=== PATIENT | female | born 1995 | race Caucasian/White ===

== ENCOUNTER 2016-09-20 16:45 | Emergency (ER) | payer BC ==
[2016-09-20] MEDS ORDERED: PREDNISONE 20 MG TABLET PO ONE (19:04)
[2016-09-20] MEDS ORDERED: ALBUTEROL SULFATE 0.083% NEB 2.5 MG/3 ML AMPUL NEB ONE (19:04)
[2016-09-20] MEDS ORDERED: AZITHROMYCIN 250 MG TABLET PO ONE (19:05)
--- NOTE | 2016-09-20 19:06 | ER Document Report ---
HPI - HPI Patient complains to provider of: sinus pressure, cough, congestion Onset: Other - 3 weeks Onset/Duration: Gradual Pain Level: 2 Context: 21-year-old female complaining of head congestion and sinus pain and chest congestion with cough for 3 weeks. No fever or chills. No nausea vomiting or diarrhea. No chest pain or shortness of breath. Associated Symptoms: None Exacerbated by: Denies Relieved by: Denies Similar symptoms previously: Yes Recently seen / treated by doctor: No - ROS ROS below otherwise negative: Yes Systems Reviewed and Negative: Yes All other systems reviewed and negative - REPRODUCTIVE Reproductive: DENIES: : <DC MATTHEWS - Last Filed: 09/23/16 07:33> Past Medical History - General Information source: Patient - Social History Smoking Status: Unknown if Ever Smoked Frequency of alcohol use: None Drug Abuse: None Family History: Reviewed & Not Pertinent - Medical History Medical History: Negative Past Surgical History: Reports: Hx Oral Surgery, Hx Tonsillectomy - Immunizations Immunizations up to date: Yes Hx Diphtheria, Pertussis, Tetanus Vaccination: Yes <DC MATTHEWS - Last Filed: 09/23/16 07:33> Vertical Provider Document - CONSTITUTIONAL Agree With Documented VS: Yes Exam Limitations: No Limitations - INFECTION CONTROL TRAVEL OUTSIDE OF THE [place] IN LAST 30 DAYS: No - HEENT HEENT: Normocephalic, Pharyngeal Erythema. negative: Conjuctival Injection, Tympanic Membrane Red - NECK Neck: Supple. negative: Lymphadenopathy-Left, Lymphadenopathy-Right - RESPIRATORY Respiratory: Breath Sounds Normal, No Respiratory Distress - CARDIOVASCULAR Cardiovascular: Regular Rate, Regular Rhythm - BACK Back: Normal Inspection - MUSCULOSKELETAL/EXTREMETIES Musculoskeletal/Extremeties: ESPERANZA COBOS - NEURO Level of Consciousness: Awake, Alert - DERM Integumentary: Warm, Dry, No Rash <DC MATTHEWS - Last Filed: 09/23/16 07:33> Course - Re-evaluation Re-evalutation: 09/20/16 20:12 Chest x-ray is negative 09/23/16 07:35 <DC MATTHEWS - Last Filed: 09/23/16 07:33> - Vital Signs Vital signs: Temp Pulse Resp BP Pulse Ox 97.9 F 78 16 126/75 H 98 09/20/16 19:06 09/20/16 19:06 09/20/16 19:06 09/20/16 19:06 09/20/16 19:06 <EDU WILBURN - Last Filed: 09/23/16 17:23> Discharge <BYRONDC - Last Filed: 09/23/16 07:33> <EDU WILBURN - Last Filed: 09/23/16 17:23> - Discharge Clinical Impression: Bronchitis Condition: Good Disposition: HOME, SELF-CARE Instructions: Inhaled Bronchodilators ([facility]), Steroid Medication, Bronchitis ( [facility]) Additional Instructions: plenty of fluids to er if worse use the inhaler to help get the mucous out Prescriptions: Albuterol Sulfate [Proair HFA Inhalation Aerosol 8.5 gm MDI] 2 puff IH Q3HP PRN #1 hfa.aer.[id number] PRN Reason: Azithromycin [Zithromax] 250 mg PO DAILY #4 tablet Prednisone [Deltasone 20 mg Tablet] 40 mg PO DAILY #8 tablet
[2016-09-20 19:11] VITALS: BP 126/75
[2016-09-20] MEDS ORDERED: ALBUTEROL SULFATE HFA (90 MCG/PUFF) 200 PUFF/8.5 GM MDI IH ONE (20:12)
== END 2016-09-20 20:35 | disposition home or self-care (01) ==
LOC: ER 16:45
DX: J40 Bronchitis, not specified as acute or chronic (principal); J34.89 Other specified disorders of nose and nasal sinuses; R09.89 Other specified symptoms and signs involving the circulatory and respiratory systems; R05 Cough
CPT/HCPCS: 94640; 99283; 71020; J7512; J3490

== ENCOUNTER 2017-05-17 14:21 | Emergency (ER) | payer BC ==
[2017-05-17] MEDS ORDERED: NORMAL SALINE 1000 ML 1,000 ML IV PRN (14:35)
[2017-05-17] MEDS ORDERED: METOCLOPRAMIDE HCL INJ/PF 10 MG/2 ML SDV IV ONE (14:36)
[2017-05-17 15:35] LABS: ABSOLUTE EOSINOPHILS # (AUTO) 0.1 10^3/uL (0.0-0.6); ABSOLUTE LYMPHOCYTES (AUTO) 1.5 10^3/uL (0.5-4.7); ABSOLUTE MONOCYTES (AUTO) 0.3 10^3/uL (0.1-1.4); ABSOLUTE NEUT (AUTO) 6.3 10^3/uL (1.7-8.2); BASOPHILS % (AUTO) 0.3 % (0-2); HEMATOCRIT 41.5 % (36.0-47.0); HEMOGLOBIN 13.7 g/dL (12.0-15.5); HGB HCT DIFFERENCE -0.4; MEAN CORPUSCULAR HEMOGLOBIN 26.5 pg (27.0-33.4); MEAN CORPUSCULAR HGB CONC 33.1 g/dL (32.0-36.0); MEAN CORPUSCULAR VOLUME 80 fl (80-97); MONOCYTES % (AUTO) 3.8 % (3-13); RED BLOOD COUNT 5.17 10^6/uL (3.72-5.28); RED CELL DISTRIBUTION WIDTH 15.7 % (11.5-14.0); SEGMENTED NEUTROPHILS % (AUTO) 76.9 % (42-78); WHITE BLOOD COUNT 8.2 10^3/uL (4.0-10.5)
[2017-05-17 15:58] LABS: APPEARANCE,URINE SLIGHTLY-CLOUDY; BILIRUBIN,URINE NEGATIVE (NEGATIVE); GLUCOSE, URINE NEGATIVE (NEGATIVE); KETONES,URINE 80 mg/dL (NEGATIVE); LEUKOCYTE ESTERASE,URINE NEGATIVE (NEGATIVE); NITRITE,URINE NEGATIVE (NEGATIVE); PROTEIN,URINE NEGATIVE (NEGATIVE)
[2017-05-17 16:01] LABS: ALBUMIN 4.8 g/dL (3.5-5.0); CARBON DIOXIDE 22 mmol/L (22-30); CREATININE RESULT 0.56 mg/dL (0.52-1.25); NEONATAL BILIRUBIN RESULT 0.3 mg/dL (0.1-1.1); TOTAL PROTEIN 8.2 g/dL (6.3-8.2)
[2017-05-17 16:02] LABS: ASPARTATE AMINO TRANSFERASE 31 U/L (14-36); BLOOD UREA NITROGEN 6 mg/dL (7-20); CALCIUM 10.2 mg/dL (8.4-10.2); GLUCOSE 78 mg/dL (75-110); POTASSIUM 4.2 mmol/L (3.6-5.0)
[2017-05-17 16:04] LABS: ALANINE AMINOTRANSFERASE 57 U/L (9-52); ALKALINE PHOSPHATASE 100 U/L (38-126)
[2017-05-17 16:05] LABS: ANION GAP 16 (5-19); CHLORIDE 102 mmol/L (98-107); SODIUM 139.7 mmol/L (137-145)
[2017-05-17 16:17] LABS: BILIRUBIN,DIRECT 0.5 mg/dL (0.0-0.4); BILIRUBIN,TOTAL 0.8 mg/dL (0.2-1.3)
--- NOTE | 2017-05-17 16:38 | ER Document Report ---
ED General - General Chief Complaint: Nausea/Vomiting Stated Complaint: POSSIBLE DEHYDRATION Time Seen by Provider: 05/17/17 14:35 Information source: Patient Notes: Patient states that she has had several days of nausea and vomiting with some mild upper epigastric cramping. This pain has been intermittent. Nothing makes them better or worse. It does not radiate. Patient states she is currently 8 weeks and has had a normal ultrasound already with this . No vaginal discharge or bleeding. No diarrhea. No fevers. No rashes. She states she was referred here today by her CLERICAL COORDINATOR provider TRAVEL OUTSIDE OF THE [place] IN LAST 30 DAYS: No - Related Data Allergies/Adverse Reactions: No Known Allergies Allergy (Verified 05/17/17 14:27) Past Medical History - General Information source: Patient - Social History Smoking Status: Never Smoker Chew tobacco use (# tins/day): No Frequency of alcohol use: None Drug Abuse: None Family History: Reviewed & Not Pertinent Neurological Medical History: Reports: Hx Migraine Renal/ Medical History: Denies: Hx Peritoneal Dialysis Past Surgical History: Reports: Hx Oral Surgery - wisdom, Hx Tonsillectomy - Immunizations Immunizations up to date: Yes Hx Diphtheria, Pertussis, Tetanus Vaccination: Yes Review of Systems - Review of Systems Constitutional: Malaise. denies: Chills, Fever Cardiovascular: denies: Chest pain, Palpitations Respiratory: denies: Cough, Short of breath Gastrointestinal: Nausea, Vomiting. denies: Diarrhea -: Yes All other systems reviewed and negative Physical Exam - Vital signs Interpretation: Normal - General General appearance: Appears well, Alert - HEENT Head: Normocephalic, Atraumatic Eyes: Normal Pupils: PERRL - Respiratory Respiratory status: No respiratory distress Chest status: Nontender Breath sounds: Normal Chest palpation: Normal - Cardiovascular Rhythm: Regular Heart sounds: Normal auscultation Murmur: No - Abdominal Inspection: Normal Distension: No distension Bowel sounds: Normal Tenderness: Nontender Organomegaly: No organomegaly - Back Back: Normal, Nontender - Extremities General upper extremity: Normal inspection, Nontender, Normal color, Normal ROM , Normal temperature General lower extremity: Normal inspection, Nontender, Normal color, Normal ROM , Normal temperature, Normal weight bearing. No: Hudson's sign - Neurological Neuro grossly intact: Yes Cognition: Normal Orientation: AAOx4 [place] Coma Scale Eye Opening: Spontaneous [place] Coma Scale Verbal: Oriented [place] Coma Scale Motor: Obeys Commands [place] Coma Scale Total: 15 Speech: Normal Motor strength normal: LUE, RUE, LLE, RLE Sensory: Normal - Psychological Associated symptoms: Normal affect, Normal mood - Skin Skin Temperature: Warm Skin Moisture: Dry Skin Color: Normal Course - Re-evaluation Re-evalutation: 05/17/17 16:36 Patient states she feels better after receiving IV fluids - Laboratory Result Diagrams: 05/17/17 15:09 05/17/17 15:09 Laboratory results interpreted by me: 05/17/17 05/17/17 05/17/17 15:09 15:09 15:09 MCH 26.5 L RDW 15.7 H BUN 6 L Direct Bilirubin 0.5 H ALT 57 H Urine Ketones 80 H Urine Urobilinogen 4.0 H Urine Ascorbic Acid 40 H Discharge - Discharge Clinical Impression: Hyperemesis gravidarum Condition: Stable Disposition: HOME, SELF-CARE Instructions: Antinausea Medication ([facility]), Reglan ([facility]), Intravenous (IV) Fluids ([facility]), Hyperemesis Gravidarum ([facility]) Additional Instructions: Please follow-up with your OB provider as soon as possible. Prescriptions: Metoclopramide HCl [Reglan] 10 mg PO Q6 PRN #10 tablet PRN Reason:
[2017-05-17 17:03] VITALS: BP 106/57
== END 2017-05-17 17:03 | disposition home or self-care (01) ==
LOC: ER 14:21
DX: O21.0 Mild hyperemesis gravidarum (principal); O26.891 Other specified pregnancy related conditions, first trimester; R10.13 Epigastric pain; Z3A.08 8 weeks gestation of pregnancy
CPT/HCPCS: 99284; 96361; 96374; 36415; 83690; 85025; 80053; 81001; J2765; J7030

== ENCOUNTER 2017-07-07 21:57 | Emergency (ER) | payer BC, MEDICAID ==
[2017-07-08 00:03] LABS: ABSOLUTE EOSINOPHILS # (AUTO) 0.2 10^3/uL (0.0-0.6); ABSOLUTE LYMPHOCYTES (AUTO) 1.8 10^3/uL (0.5-4.7); ABSOLUTE MONOCYTES (AUTO) 0.5 10^3/uL (0.1-1.4); ABSOLUTE NEUT (AUTO) 7.7 10^3/uL (1.7-8.2); BASOPHILS % (AUTO) 0.4 % (0-2); EOSINOPHILS % (AUTO) 1.7 % (0-6); HEMATOCRIT 38.2 % (36.0-47.0); HEMOGLOBIN 12.9 g/dL (12.0-15.5); HGB HCT DIFFERENCE 0.5; LYMPHOCYTES % (AUTO) 17.5 % (13-45); MEAN CORPUSCULAR HEMOGLOBIN 27.2 pg (27.0-33.4); MEAN CORPUSCULAR HGB CONC 33.7 g/dL (32.0-36.0); MEAN CORPUSCULAR VOLUME 81 fl (80-97); MONOCYTES % (AUTO) 4.5 % (3-13); RED BLOOD COUNT 4.73 10^6/uL (3.72-5.28); RED CELL DISTRIBUTION WIDTH 15.2 % (11.5-14.0); SEGMENTED NEUTROPHILS % (AUTO) 75.9 % (42-78); WHITE BLOOD COUNT 10.2 10^3/uL (4.0-10.5)
[2017-07-08 00:08] LABS: APPEARANCE,URINE CLEAR; BILIRUBIN,URINE NEGATIVE (NEGATIVE); GLUCOSE, URINE NEGATIVE (NEGATIVE); KETONES,URINE NEGATIVE (NEGATIVE); LEUKOCYTE ESTERASE,URINE TRACE (NEGATIVE); NITRITE,URINE NEGATIVE (NEGATIVE); PROTEIN,URINE NEGATIVE (NEGATIVE); URINE SPECIFIC GRAVITY 1.006
[2017-07-08 00:16] LABS: ANION GAP 12 (5-19); BLOOD UREA NITROGEN 7 mg/dL (7-20); CALCIUM 9.9 mg/dL (8.4-10.2); CARBON DIOXIDE 22 mmol/L (22-30); CHLORIDE 104 mmol/L (98-107); CREATININE RESULT 0.54 mg/dL (0.52-1.25); GLUCOSE 91 mg/dL (75-110); POTASSIUM 4.1 mmol/L (3.6-5.0); SODIUM 137.6 mmol/L (137-145)
--- NOTE | 2017-07-08 00:50 | ER Document Report ---
ED General - General Chief Complaint: Chest Pain Stated Complaint: CHEST PAIN,DIZZY Time Seen by Provider: 07/08/17 00:10 Notes: The patient is a 22-year-old female, 15 weeks , , presents with several hours of epigastric abdominal pain and substernal burning. She also felt slightly lightheaded, which has resolved. She follows at [facility]. In addition, she is still having nausea and vomiting. She denies lower abdominal pain, urinary symptoms, vaginal bleeding or leakage of fluids, syncope , shortness of breath, leg swelling, fevers, hemoptysis, headache or rash. TRAVEL OUTSIDE OF THE [place] IN LAST 30 DAYS: No - Related Data Allergies/Adverse Reactions: No Known Allergies Allergy (Verified 05/17/17 14:27) Past Medical History - General Information source: Patient - Social History Smoking Status: Unknown if Ever Smoked Chew tobacco use (# tins/day): No Frequency of alcohol use: None Drug Abuse: None Family History: Reviewed & Not Pertinent Patient has suicidal ideation: No Patient has homicidal ideation: No Neurological Medical History: Reports: Hx Migraine Renal/ Medical History: Denies: Hx Peritoneal Dialysis Past Surgical History: Reports: Hx Oral Surgery - wisdom, Hx Tonsillectomy - Immunizations Immunizations up to date: Yes Hx Diphtheria, Pertussis, Tetanus Vaccination: Yes Review of Systems - Review of Systems Notes: REVIEW OF SYSTEMS: CONSTITUTIONAL: -fevers, -chills EENT: -eye pain, -difficulty swallowing, -nasal congestion CARDIOVASCULAR: +chest pain, -syncope. RESPIRATORY: -cough, -SOB GASTROINTESTINAL: -abdominal pain, +nausea, +vomiting, -diarrhea GENITOURINARY: -dysuria, -hematuria MUSCULOSKELETAL: -back pain, -neck pain SKIN: -rash or skin lesions. HEMATOLOGIC: -easy bruising or bleeding. LYMPHATIC: -swollen, enlarged glands. NEUROLOGICAL: -altered mental status or loss of consciousness, -headache, - neurologic symptoms PSYCHIATRIC: -anxiety, -depression. ALL OTHER SYSTEMS REVIEWED AND NEGATIVE. Physical Exam - Vital signs Vitals: Temp Pulse Resp BP Pulse Ox 97.9 F 82 18 115/59 L 98 07/07/17 22:13 07/07/17 22:13 07/07/17 22:13 07/07/17 22:13 07/07/17 22:13 - Notes Notes: PHYSICAL EXAMINATION: GENERAL: Well-appearing, well-nourished and in no acute distress. HEAD: Atraumatic, normocephalic. EYES: Pupils equal round and reactive to light, extraocular movements intact, sclera anicteric, conjunctiva are normal. ENT: nares patent, oropharynx clear without exudates. Moist mucous membranes. NECK: Normal range of motion, supple without lymphadenopathy LUNGS: Breath sounds clear to auscultation bilaterally and equal. No wheezes rales or rhonchi. HEART: Regular rate and rhythm without murmurs ABDOMEN: Soft, nontender, normoactive bowel sounds. No guarding, no rebound. No masses appreciated. EXTREMITIES: Normal range of motion, no pitting or edema. No cyanosis. NEUROLOGICAL: Cranial nerves grossly intact. Normal speech, normal gait. Normal sensory and motor exams. PSYCH: Normal mood, normal affect. SKIN: Warm, Dry, normal turgor, no rashes or lesions noted. Course - Re-evaluation Re-evalutation: Patient appears well. Her EKG and blood work do not show any acute abnormalities. With the burning sensation, suspect a component of GERD. Will begin patient on Pepcid and Dicelgis to help with her nausea and vomiting. She has absolutely no abdominal tenderness. Considered PE, but patient has no respiratory symptoms and she is not tachycardic, tachypneic or hypoxic. Symptoms are atypical for ACS or aortic dissection at this time. Will have patient follow-up with her OB for further evaluation and treatment. - Vital Signs Vital signs: Temp Pulse Resp BP Pulse Ox 98.5 F 63 18 107/63 100 07/08/17 00:58 07/08/17 00:58 07/08/17 00:58 07/08/17 00:58 07/08/17 00:58 - Laboratory Result Diagrams: 07/07/17 23:55 07/07/17 23:55 Laboratory results interpreted by me: 07/07/17 07/07/17 23:55 23:55 RDW 15.2 H Urine Urobilinogen 2.0 H Ur Leukocyte Esterase TRACE H Urine HCG, Qual POSITIVE H - EKG Interpretation by Me EKG shows normal: Sinus rhythm, [place], Intervals, QRS Complexes, ST-T Waves Rate: Normal Discharge - Discharge Clinical Impression: Chest pain Qualifiers: Chest pain type: unspecified Qualified Code(s): R07.9 - Chest pain, unspecified Nausea and vomiting Qualifiers: Vomiting type: unspecified Vomiting Intractability: non-intractable Qualified Code(s): R11.2 - Nausea with vomiting, unspecified Condition: Stable Disposition: HOME, SELF-CARE Additional Instructions: CHEST PAIN OF UNCLEAR CAUSE: The exact cause of your chest pain isn't clear. Fortunately, there is no evidence of a dangerous medical condition. Further testing may be required to find the source of the pain. Most often, we find that this pain is coming from the chest wall -- the muscles or rib joints in the chest. But chest pain can come from the lung and lung lining, the esophagus, the heart valves or heart lining, and even the stomach or gallbladder. Rest. Eat lightly until the pain is gone. We may prescribe medicine for pain and inflammation. You should call the physician immediately if the pain radiates to the shoulder, jaw or arms; if you start to run a fever or develop a cough; or if you develop shortness of breath, or other new or alarming symptoms. NORMAL EXAM AND WORKUP: At this time, your examination and workup show no significant abnormality. No significant abnormal physical findings were noted. All laboratory, EKG, and imaging (x-ray, CT scans, ultrasound) studies that were ordered show no significant abnormality. Although your examination and all studies that were ordered showed no significant abnormal finding, there are no examinations and no studies that are 100% accurate. There is always the possibility that some abnormality could exist and not be detected with physical examination or within the limits and capabilities of laboratory and other studies. You should return or follow up as you were instructed on your visit today for further evaluation if your symptoms do not resolve. CHEST WALL PAIN: Your chest pain may be coming from the chest wall. This is often caused by straining the muscles or joints in the chest during physical activity, direct trauma, coughing, or vigorous vomiting. Persons with arthritis are especially prone to this type of pain, due to inflammation of the cartilage joints near the breast bone. Occasionally, no cause can be found. Rest from strenuous physical activity. This kind of chest pain is usually made worse by movement of the chest. Depending on the symptoms, we may prescribe medicine for pain, muscle relaxation, and antiinflammatory effects. If the pain is new, and seems to be due to muscle strain, cold packs can help. Otherwise, apply gentle warmth to the painful area for 15 minutes every hour or two. You should call contact the doctor immediately if things change. Further evaluation is needed if you develop a fever or cough, if the nature of the pain changes, or if you become short of breath. ACID REFLUX DISEASE (GERD): Gastro-Esophageal Reflux Disease (GERD) is caused by stomach acid refluxing back up into the esophagus. The valve at the end of the esophagus may be weak. This is common in persons with a hiatal hernia. GERD symptoms can include indigestion, chest pain, heartburn, or food "sticking." Certain foods, alcohol, and aspirin can make GERD worse. Treatment depends on the severity. Usually, antacids or acid-suppressing medicines are used. When the esophagus is acutely inflamed, the physician will often prescribe membrane-protective drugs such as Carafate. Some patients benefit from medication such as Reglan that tightens the valve at the top of the stomach. Avoid those foods that bring on your symptoms. For many people, these foods are coffee, chocolate, onions, garlic, and carbonated drinks. Don't use alcohol, aspirin, caffeine, or tobacco. Don't eat late at night -- within 4 hours of bedtime. Don't over-eat. If necessary, elevate the head of your bed about 4 inches so that stomach acid will not roll up into your esophagus. Call the doctor if you develop severe chest pain, inability to swallow fluids, fever, or worsening symptoms. FOLLOW-UP CARE: If you have been referred to a physician for follow-up care, call the physician s office for an appointment as you were instructed or within the next two days. If you experience worsening or a significant change in your symptoms, notify the physician immediately or return to the Emergency Department at any time for re-evaluation. Prescriptions: Doxylamine Succinate/Vit B6 [Tasneem Montelongo 10-10 mg Tablet] 1 each PO Q8H PRN #15 tablet.dr CLANCY Reason: Famotidine [Heartburn Prevention] 20 mg PO Q12H 10 Days tablet Referrals: ADEN PATINO MD [ACTIVE STAFF] - Follow up as needed
[2017-07-08 01:00] VITALS: BP 107/63
--- NOTE | 2017-07-08 20:18 | EKG REPORT ---
SEVERITY:- NORMAL ECG - SINUS RHYTHM : Confirmed by: Magdalene Pacheco MD 08-Jul-2017 20:17:11
== END 2017-07-08 00:59 | disposition home or self-care (01) ==
LOC: ER 21:57
DX: R07.9 Chest pain, unspecified (principal); R11.2 Nausea with vomiting, unspecified; R42 Dizziness and giddiness; R10.13 Epigastric pain
CPT/HCPCS: 36415; 80048; 81001; 81025; 84703; 85025; 93005; 93010; 99285

== ENCOUNTER 2017-08-01 17:06 | Emergency (ER) | payer BC, MEDICAID ==
[2017-08-01] MEDS ORDERED: NORMAL SALINE 1000 ML 2,000 ML IV PRN (18:25)
[2017-08-01] MEDS ORDERED: METOCLOPRAMIDE HCL INJ/PF 10 MG/2 ML SDV IV ONE (18:25)
--- NOTE | 2017-08-01 18:29 | ER Document Report ---
ED Dizziness/Weakness - General Chief Complaint: Dizziness Stated Complaint: WEAKNESS Time Seen by Provider: 08/01/17 18:16 Mode of Arrival: Stretcher Information source: Patient, Parent TRAVEL OUTSIDE OF THE [place] IN LAST 30 DAYS: No - HPI Patient complains to provider of: Dizziness, Syncope Onset: Just prior to arrival Onset/Duration: Sudden Quality of pain: No pain Associated symptoms: Fainted, Lightheaded, Nausea Baseline gait: Walks w/o assistance Notes: Patient is a 22-year-old female who is currently approximately 18 weeks , , presenting to the emergency room via EMS after apparent syncopal episode, mother who works at [employer] reports that patient came to pick her up, shortly thereafter she found her sitting on the bench, she was "what is a ghost ", and cool and clammy, as well as unresponsive, this is the second time that this is happened during this , patient admits that she has not been eating or drinking very much because of nausea, she is not taking her nausea medications regularly to control her nausea and vomiting, and she has lost at least 6 pounds, mother who witnessed the episode reports there was no seizure activity, and patient denies any memory of the episode, however she does remember telling her mother that she could not see and feeling lightheaded shortly before the episode occurred, she denies any chest pain or shortness of breath - Related Data Allergies/Adverse Reactions: No Known Allergies Allergy (Verified 05/17/17 14:27) Past Medical History - General Information source: Patient - Social History Smoking Status: Never Smoker Family History: Reviewed & Not Pertinent Patient has suicidal ideation: No Patient has homicidal ideation: No Neurological Medical History: Reports: Hx Migraine Renal/ Medical History: Denies: Hx Peritoneal Dialysis Past Surgical History: Reports: Hx Oral Surgery - wisdom, Hx Tonsillectomy - Immunizations Immunizations up to date: Yes Hx Diphtheria, Pertussis, Tetanus Vaccination: Yes Review of Systems - Review of Systems Constitutional: No symptoms reported EENT: No symptoms reported Cardiovascular: See HPI Respiratory: No symptoms reported Gastrointestinal: No symptoms reported Genitourinary: No symptoms reported Female Genitourinary: No symptoms reported Musculoskeletal: No symptoms reported Skin: No symptoms reported Hematologic/Lymphatic: No symptoms reported Neurological/Psychological: No symptoms reported -: Yes All other systems reviewed and negative Physical Exam - Vital signs Vitals: Resp Pulse Ox 23 H 99 08/01/17 17:31 08/01/17 17:31 Interpretation: Normal - General General appearance: Appears well, Alert - HEENT Head: Normocephalic, Atraumatic Eyes: Normal Pupils: PERRL - Respiratory Respiratory status: No respiratory distress Chest status: Nontender Breath sounds: Normal Chest palpation: Normal - Cardiovascular Rhythm: Regular Heart sounds: Normal auscultation Murmur: No - Abdominal Inspection: Gravid female Distension: No distension Bowel sounds: Normal Tenderness: Nontender Organomegaly: No organomegaly - Back Back: Normal, Nontender - Extremities General upper extremity: Normal inspection, Nontender, Normal color, Normal ROM , Normal temperature General lower extremity: Normal inspection, Nontender, Normal color, Normal ROM , Normal temperature, Normal weight bearing. No: Hudson's sign - Neurological Neuro grossly intact: Yes Cognition: Normal Orientation: AAOx4 [place] Coma Scale Eye Opening: Spontaneous [place] Coma Scale Verbal: Oriented [place] Coma Scale Motor: Obeys Commands [place] Coma Scale Total: 15 Speech: Normal Motor strength normal: LUE, RUE, LLE, RLE Sensory: Normal - Psychological Associated symptoms: Normal affect, Normal mood - Skin Skin Temperature: Warm Skin Moisture: Dry Skin Color: Normal Course - Re-evaluation Re-evalutation: 08/01/17 22:07 Patient resting comfortably, family has brought food for patient to eat which she is tolerated well, she was discharged with instructions to increase her fluid and nutrition and warned about the possible consequences to herself and her unborn child, she was advised to follow-up with [facility] or return if symptoms worsen, patient acknowledges understanding and agreement with this plan - Vital Signs Vital signs: Temp Pulse Resp BP Pulse Ox 22 H 115/80 100 08/01/17 21:01 08/01/17 21:00 08/01/17 21:01 - Laboratory Result Diagrams: 08/01/17 17:30 08/01/17 17:30 Laboratory results interpreted by me: 08/01/17 08/01/17 08/01/17 17:30 17:30 18:45 RDW 15.5 H Carbon Dioxide 20 L Urine Protein 30 H Urine Ketones 20 H Urine Urobilinogen 2.0 H Ur Leukocyte Esterase SMALL H - EKG Interpretation by Me EKG shows normal: Sinus rhythm Rate: Normal Rhythm: NSR Discharge - Discharge Clinical Impression: Dehydration during Syncope Qualifiers: Syncope type: unspecified Qualified Code(s): R55 - Syncope and collapse Condition: Stable Disposition: HOME, SELF-CARE Instructions: Antinausea Medication ([facility]), Dehydration ([facility]), ([facility]), Syncopal Episode ([facility]) Additional Instructions: Drink plenty of fluids and eat well-balanced meals throughout the day. Follow- up with [facility] [employer] [facility] in the next week. Return to the emergency room immediately if symptoms worsen or any additional concerns. Prescriptions: Metoclopramide HCl [Reglan 10 mg Tablet] 1 - 2 tab PO ASDIR PRN #25 tablet PRN Reason: Ondansetron [Zofran Odt 4 mg Tablet] 1 - 2 tab PO Q4H #20 tab.rapdis Prochlorperazine Maleate [Compazine 10 mg Tablet] 10 mg PO TID #12 tablet
[2017-08-01 19:28] LABS: BILIRUBIN,URINE NEGATIVE (NEGATIVE); CALCIUM OXALATE CRYSTALS,URINE MANY /HPF; GLUCOSE, URINE NEGATIVE (NEGATIVE); KETONES,URINE 20 mg/dL (NEGATIVE); LEUKOCYTE ESTERASE,URINE SMALL (NEGATIVE); NITRITE,URINE NEGATIVE (NEGATIVE); PROTEIN,URINE 30 mg/dL (NEGATIVE); URINE SPECIFIC GRAVITY 1.025
[2017-08-01 19:32] LABS: APPEARANCE,URINE CLEAR
[2017-08-01 20:06] LABS: ABSOLUTE EOSINOPHILS # (AUTO) 0.1 10^3/uL (0.0-0.6); ABSOLUTE LYMPHOCYTES (AUTO) 1.4 10^3/uL (0.5-4.7); ABSOLUTE MONOCYTES (AUTO) 0.4 10^3/uL (0.1-1.4); ABSOLUTE NEUT (AUTO) 4.9 10^3/uL (1.7-8.2); BASOPHILS % (AUTO) 0.4 % (0-2); EOSINOPHILS % (AUTO) 1.8 % (0-6); HEMATOCRIT 37.5 % (36.0-47.0); HEMOGLOBIN 12.8 g/dL (12.0-15.5); HGB HCT DIFFERENCE 0.9; LYMPHOCYTES % (AUTO) 20.7 % (13-45); MEAN CORPUSCULAR VOLUME 82 fl (80-97); RED BLOOD COUNT 4.56 10^6/uL (3.72-5.28); RED CELL DISTRIBUTION WIDTH 15.5 % (11.5-14.0); SEGMENTED NEUTROPHILS % (AUTO) 71.1 % (42-78); WHITE BLOOD COUNT 6.9 10^3/uL (4.0-10.5)
--- NOTE | 2017-08-01 20:08 | EKG REPORT ---
SEVERITY:- NORMAL ECG - SINUS RHYTHM : Confirmed by: Nikunj Zelaya MD 01-Aug-2017 20:08:04
[2017-08-01 20:31] LABS: ALANINE AMINOTRANSFERASE 42 U/L (9-52); ALBUMIN 3.7 g/dL (3.5-5.0); ALKALINE PHOSPHATASE 86 U/L (38-126); ANION GAP 13 (5-19); ASPARTATE AMINO TRANSFERASE 20 U/L (14-36); BILIRUBIN,DIRECT 0.3 mg/dL (0.0-0.4); BILIRUBIN,TOTAL 0.3 mg/dL (0.2-1.3); BLOOD UREA NITROGEN 9 mg/dL (7-20); CALCIUM 9.3 mg/dL (8.4-10.2); CARBON DIOXIDE 20 mmol/L (22-30); CHLORIDE 107 mmol/L (98-107); CREATININE RESULT 0.61 mg/dL (0.52-1.25); GLUCOSE 81 mg/dL (75-110); LIPASE 69.4 U/L (23-300); MAGNESIUM 1.9 mg/dL (1.6-2.3); POTASSIUM 4.3 mmol/L (3.6-5.0); SODIUM 139.5 mmol/L (137-145)
[2017-08-01 20:55] LABS: TOTAL PROTEIN 6.8 g/dL (6.3-8.2)
[2017-08-01 21:13] VITALS: BP 115/80
== END 2017-08-01 21:20 | disposition home or self-care (01) ==
LOC: ER 17:06
DX: O26.892 Other specified pregnancy related conditions, second trimester (principal); E86.0 Dehydration; R55 Syncope and collapse; R42 Dizziness and giddiness; R11.0 Nausea; Z3A.18 18 weeks gestation of pregnancy
CPT/HCPCS: 93005; 99285; 96361; 96374; 36415; 87086; 82962; 83690; 83735; 85025; 80053; 81001; 93010; J2765; J7030

== ENCOUNTER 2017-09-14 17:08 | Emergency (ER) | payer BC ==
[2017-09-14] MEDS ORDERED: DIPH/PERTUSS(ACELL)/TETANUS VAC/PF 0.5 ML SYR (>=10YO) IM ONE (17:47)
--- NOTE | 2017-09-14 17:47 | ER Document Report ---
ED Animal Bite - General Chief Complaint: Dog Bite Stated Complaint: RIGHT HAND DOG BITE Time Seen by Provider: 09/14/17 17:40 Mode of Arrival: Ambulatory Information source: Patient TRAVEL OUTSIDE OF THE [place] IN LAST 30 DAYS: No - HPI Patient complains to provider of: dog bite, rt hand Location of injury: RUE - rt hand Severity of injury: Bitten Onset: Just prior to arrival Where did incident occur: at family friend's home (dog sitting) Quality of pain: Achy Pain Level: 1 Severity: Mild Context of attack: Approached animal - tried to pet it when it came back from the bathroom Type of animal: Dog Appearance of animal: Appeared well Breed and color: mut, unknown Animal's immunizations: UTD - per owners Notes: Pt is 20 weeks currently. Mother believes last tetanus was >5 years ago. Pt able to move hand/fingers w/o difficulty Denies drug allergies No other concerns or complaints Denies any headache, fever, neck pain, URI, sore throat, chest pain, palpitations, syncope, cough, shortness of breath, wheeze, dyspnea, abdominal pain, nausea/vomiting/diarrhea, urinary retention, dysuria, hematuria, vaginal cramping/bleeding/discharge, numbness/tingling, muscle paralysis/weakness, or rash. - Related Data Allergies/Adverse Reactions: No Known Allergies Allergy (Verified 09/14/17 17:08) Past Medical History - Social History Smoking Status: Never Smoker Family History: Reviewed & Not Pertinent Neurological Medical History: Reports: Hx Migraine Renal/ Medical History: Denies: Hx Peritoneal Dialysis Past Surgical History: Reports: Hx Oral Surgery - wisdom, Hx Tonsillectomy - Immunizations Immunizations up to date: Yes Hx Diphtheria, Pertussis, Tetanus Vaccination: Yes Review of Systems - Review of Systems Notes: REVIEW OF SYSTEMS: CONSTITUTIONAL : Denies fever, chills, or sweats. Denies recent illness. EENT: Denies eye, ear, throat, or mouth pain or symptoms. Denies nasal or sinus congestion or discharge. Denies throat, tongue, or mouth swelling or difficulty swallowing. CARDIOVASCULAR: Denies chest pain. Denies palpitations or racing or irregular heart beat. RESPIRATORY: Denies cough, cold, or chest congestion. Denies shortness of breath, difficulty breathing, or wheezing. GASTROINTESTINAL: Denies abdominal pain or distention. Denies nausea, vomiting , or diarrhea. Denies blood in vomitus, stools, or per rectum. Denies black, tarry stools. Denies constipation. GENITOURINARY: Denies difficulty urinating, painful urination, burning, frequency, blood in urine, or discharge. MUSCULOSKELETAL: Denies back or neck pain or stiffness. Denies joint pain or swelling. SKIN: see hpi NEUROLOGICAL: Denies dizziness or lightheadedness. Denies headache. Denies problems with gait or speech. Denies sensory loss, numbness, or tingling. Denies seizures. ALL OTHER SYSTEMS REVIEWED AND NEGATIVE. Dictation was performed using [employer] voice recognition software Physical Exam - Vital signs Vitals: Temp Pulse Resp BP Pulse Ox 98.4 F 91 20 125/69 99 09/14/17 17:34 09/14/17 17:34 09/14/17 17:34 09/14/17 17:34 09/14/17 17:34 Notes: PHYSICAL EXAMINATION: GENERAL: Well-appearing, well-nourished and in no acute distress. LUNGS: Breath sounds clear to auscultation bilaterally and equal. No wheezes rales or rhonchi. HEART: Regular rate and rhythm without murmurs, rubs, gallops. Musculoskeletal: Rt hand: FROM to passive/active. Strength 5+/5. N/V intact distal. Extremities: No cyanosis, clubbing, or edema b/l. Peripheral pulses 2+. Capillary refill less than 3 seconds. NEUROLOGICAL: Cranial nerves grossly intact. Normal speech, normal gait. Normal sensory, motor exams PSYCH: Normal mood, normal affect. SKIN: Rt hand: there are a total of 2 puncture wounds and an abrasion. There is 1 small 0.3cm puncture wound to the posterolateral hand and one 0.3cm to the anterior lateral hand. The abrasion is near the puncture wound anteriorly ( 0.2cm). Otherwise, Warm, Dry, normal turgor, no rashes or lesions noted. No streaks, abscess, or purulent discharge. No obvious foreign body appreciated with wound cleaning and investigation. The wounds appear very superficial. Course - Re-evaluation Re-evalutation: 09/14/17 17:53 Patient is an afebrile, well-hydrated, 22-year-old female who presents to the ED with a dog bite to the right hand. Vitals are stable. PE is otherwise unremarkable for any neurovascular compromise, obvious tendon/ligament rupture, obvious fracture or dislocation. No imaging warranted at this time as the wounds are superficial and my exam did not have a high index of suspicion for foreign body. The wound was thoroughly cleansed and irrigated and wound dressing was placed. Tdap was given today. Wound instructions reviewed with the patient. I will send her home with a prescription for Augmentin, B, to take as directed with close monitoring. Recheck with your PCM in 3-5 days. Return to the ED with any worsening/concerning symptoms otherwise as reviewed in discharge. Patient is in agreement. - Vital Signs Vital signs: Temp Pulse Resp BP Pulse Ox 98.4 F 91 20 125/69 99 09/14/17 17:34 09/14/17 17:34 09/14/17 17:34 09/14/17 17:34 09/14/17 17:34 Discharge - Discharge Clinical Impression: Dog bite of hand Qualifiers: Encounter type: initial encounter Laterality: right Qualified Code(s): S61.451A - Open bite of right hand, initial encounter; W54.0XXA - Bitten by dog , initial encounter; W54.0XXA - Bitten by dog, initial encounter Condition: Stable Disposition: HOME, SELF-CARE Instructions: Animal Bites ([facility]), Augmentin ([facility]) Additional Instructions: Keep the skin clean Wash with soap and water Tylenol/ibuprofen if needed Triple antibiotic ointment daily Take medication as directed Monitor behavior of dog for the next 3 weeks. Monitor for any worsening symptoms Recheck with your PCM in 3-5 days Consider consult with General Surgeon for ongoing/worsening symptoms Return to the ED with any worsening symptoms and/or development of fever, headache, chest pain, palpitations, syncope, shortness of breath, trouble breathing, abdominal pain, n/v/d, abscess, purulent discharge, red streaks, worsening swelling, or other worsening symptoms that are concerning to you. Prescriptions: Amox Tr/Potassium Clavulanate [Augmentin 875-125 Tablet] 1 tab PO BID 10 Days # 20 tablet Referrals: [facility] (JOSE ANGEL) [Provider Group] - Follow up as needed
[2017-09-14 18:12] VITALS: BP 111/70
== END 2017-09-14 18:14 | disposition home or self-care (01) ==
LOC: ER 17:08
DX: S61.451A Open bite of right hand, initial encounter (principal); W54.0XXA Bitten by dog, initial encounter
CPT/HCPCS: 90471; 90715; 99283

== ENCOUNTER 2017-10-19 04:17 | Emergency (ER) | payer BC, MEDICAID ==
[2017-10-19 04:36] VITALS: BP 119/70
--- NOTE | 2017-10-19 05:09 | ER Document Report ---
ED General - General Chief Complaint: Epigastric Pain Stated Complaint: CHEST PAIN,BACK PAIN Time Seen by Provider: 10/19/17 04:41 Mode of Arrival: Ambulatory Information source: Patient, Relative TRAVEL OUTSIDE OF THE [place] IN LAST 30 DAYS: No - HPI Notes: Patient is a otherwise healthy 22-year-old white female currently 29 weeks presents to the emergency department with report of chronic issues with reflux during the , is currently taking Pepcid twice daily without appropriate relief. The patient states that tonight her midepigastric to right upper quadrant pain seemed worse but she also has noted lower pelvic crampiness for the last 2 days with some worsening today. She denies any significant vaginal discharge and she reports no vaginal bleeding. She denies any fever or chills or cough or congestion or dyspnea. She does report nausea but no vomiting. While she describes having chest pain, she points to the midepigastric region and localizes no pain or subjective pain to the chest at all. Patient denies vision change or lower extremity swelling or edema. - Related Data Allergies/Adverse Reactions: No Known Allergies Allergy (Verified 10/19/17 04:58) Past Medical History - General Information source: Patient, Parent - Social History Smoking Status: Never Smoker Frequency of alcohol use: None Drug Abuse: None Lives with: Family Family History: Reviewed & Not Pertinent Neurological Medical History: Reports: Hx Migraine Renal/ Medical History: Denies: Hx Peritoneal Dialysis Past Surgical History: Reports: Hx Oral Surgery - wisdom, Hx Tonsillectomy - Immunizations Immunizations up to date: Yes Hx Diphtheria, Pertussis, Tetanus Vaccination: Yes Review of Systems - Review of Systems Notes: REVIEW OF SYSTEMS: CONSTITUTIONAL : Denies fever, chills, or sweats. EENT: Denies eye, ear, throat, or mouth pain or symptoms. Denies nasal or sinus congestion or discharge. Denies throat, tongue, or mouth swelling or difficulty swallowing. CARDIOVASCULAR: Denies palpitations or racing or irregular heart beat. Denies ankle edema. RESPIRATORY: Denies cough, cold, or chest congestion. Denies shortness of breath, difficulty breathing, or wheezing. GASTROINTESTINAL: Denies vomiting, or diarrhea. Denies blood in vomitus, stools, or per rectum. Denies black, tarry stools. Denies constipation beyond her baseline of usually having a bowel movement every 2-4 days. GENITOURINARY: Denies difficulty urinating, painful urination, burning, frequency, blood in urine, or discharge. FEMALE GENITOURINARY: Denies vaginal bleeding, heavy or abnormal periods, irregular periods. Denies vaginal discharge or odor. MUSCULOSKELETAL: Denies back or neck pain or stiffness. Denies joint pain or swelling. SKIN: Denies rash, lesions or sores. HEMATOLOGIC : Denies easy bruising or bleeding. LYMPHATIC: Denies swollen, enlarged glands. NEUROLOGICAL: Denies confusion or altered mental status. Denies passing out or loss of consciousness. Denies dizziness or lightheadedness. Denies headache. Denies weakness or paralysis or loss of use of either side. Denies problems with gait or speech. Denies sensory loss, numbness, or tingling. Denies seizures. PSYCHIATRIC: Denies anxiety or stress. Denies depression, suicidal ideation, or homicidal ideation. ALL OTHER SYSTEMS REVIEWED AND NEGATIVE. Dictation was performed using [employer] voice recognition software Physical Exam - Vital signs Vitals: Temp Pulse Resp BP Pulse Ox 98.3 F 78 16 119/70 98 10/19/17 04:34 10/19/17 04:34 10/19/17 04:34 10/19/17 04:34 10/19/17 04:34 - Notes Notes: PHYSICAL EXAMINATION: GENERAL: Well-appearing, well-nourished and in no acute distress. HEAD: Atraumatic, normocephalic. EYES: Pupils equal round and reactive to light, extraocular movements intact, conjunctiva are normal. ENT: Nares patent, oropharynx clear without exudates. Moist mucous membranes. NECK: Normal range of motion, supple without lymphadenopathy LUNGS: Breath sounds clear to auscultation bilaterally and equal. No wheezes rales or rhonchi. HEART: Regular rate and rhythm without murmurs ABDOMEN: Soft, tender through the midepigastric region to right upper quadrant region with a mildly positive Cintron's. No left upper quadrant pain. no guarding, no rebound. No masses appreciated. She also describes some Discomfort to the lower pelvic region. Patient is gravid consistent with a 29 week Female : Normal external female genitalia. No significant discharge. No evidence of bleeding. Head is facing down. Cervix appears thick and closed. Musculoskeletal: Normal range of motion, no pitting or edema. No cyanosis. NEUROLOGICAL: Cranial nerves grossly intact. Normal speech, normal gait. Normal sensory, motor exams. Normal reflexes. PSYCH: Normal mood, normal affect. SKIN: Warm, Dry, normal turgor, no rashes or lesions noted. Course - Re-evaluation Re-evalutation: 10/19/17 05:14 Discussion was undertaken with the patient and her family and they were in agreement with going directly to labor and delivery for evaluation of the and for tocometry evaluation And further evaluation of her upper abdominal pain. Discussion was undertaken with MAILING MANAGER Dr. Marmolejo who agreed with the patient going directly to labor and delivery for further evaluation and care. Patient may need IV fluids for contractions. She also needs evaluation of her gallbladder, and she last ate food at 1999. The patient also needs lab work to rule out pancreatitis versus hepatitis. There is no evidence for preeclampsia or eclamptic state. EKG is normal, and patient has good oxygen saturations and describes no chest pain on my evaluation. No evidence for cardiac etiology or pulmonary etiology. Also question constipation, given that patient has a bowel movement every 2-4 days on average. 10/19/17 05:17 - Vital Signs Vital signs: Temp Pulse Resp BP Pulse Ox 98.3 F 78 16 119/70 98 10/19/17 04:34 10/19/17 04:34 10/19/17 04:34 10/19/17 04:34 10/19/17 04:34 - EKG Interpretation by Pa EKG shows normal: Sinus rhythm Additional EKG results interpreted by me: 10/19/17 05:04 EKG as interpreted by me showed normal sinus rhythm rate 82. There is no gross evidence for acute DC or ischemia noted. There is no old EKG available for comparison. Discharge - Discharge Clinical Impression: Abdominal pain Qualifiers: Abdominal location: epigastric Qualified Code(s): R10.13 - Epigastric pain Qualifiers: Weeks of gestation: 29 weeks Qualified Code(s): Z3A.29 - 29 weeks gestation of Disposition: HOME, SELF-CARE Instructions: Abdominal Pain ([facility]) Additional Instructions: Go directly to labor and delivery to evaluate for early contractions and labor. You also need to be evaluated for possible gallbladder disease and pancreatitis.
--- NOTE | 2017-10-19 07:43 | EKG REPORT ---
SEVERITY:- NORMAL ECG - SINUS RHYTHM : Confirmed by: Nikunj Zelaya MD 19-Oct-2017 07:42:21
== END 2017-10-19 05:10 | disposition home or self-care (01) ==
LOC: ER 04:17
DX: O99.613 Diseases of the digestive system complicating pregnancy, third trimester (principal); K21.9 Gastro-esophageal reflux disease without esophagitis; Z79.899 Other long term (current) drug therapy; O26.893 Other specified pregnancy related conditions, third trimester; R10.13 Epigastric pain; R10.11 Right upper quadrant pain; R10.2 Pelvic and perineal pain; Z3A.29 29 weeks gestation of pregnancy
CPT/HCPCS: 93005; 93010; 99284

== ENCOUNTER 2017-10-19 05:06 | Outpatient (CLI) | payer BC, MEDICAID ==
[2017-10-19] MEDS ORDERED: RINGERS SOLUTION,LACTATED 1,000 ML IV PRN (05:09)
[2017-10-19 06:03] LABS: ABSOLUTE EOSINOPHILS # (AUTO) 0.1 10^3/uL (0.0-0.6); ABSOLUTE LYMPHOCYTES (AUTO) 1.8 10^3/uL (0.5-4.7); ABSOLUTE MONOCYTES (AUTO) 0.5 10^3/uL (0.1-1.4); ABSOLUTE NEUT (AUTO) 7.3 10^3/uL (1.7-8.2); BASOPHILS % (AUTO) 0.2 % (0-2); EOSINOPHILS % (AUTO) 1.4 % (0-6); HEMATOCRIT 33.8 % (36.0-47.0); HEMOGLOBIN 11.5 g/dL (12.0-15.5); LYMPHOCYTES % (AUTO) 18.1 % (13-45); MEAN CORPUSCULAR HEMOGLOBIN 27.6 pg (27.0-33.4); MEAN CORPUSCULAR HGB CONC 33.9 g/dL (32.0-36.0); MEAN CORPUSCULAR VOLUME 81 fl (80-97); MONOCYTES % (AUTO) 5.6 % (3-13); PLATELET COUNT 314 10^3/uL (150-450); RED BLOOD COUNT 4.15 10^6/uL (3.72-5.28); RED CELL DISTRIBUTION WIDTH 13.2 % (11.5-14.0); SEGMENTED NEUTROPHILS % (AUTO) 74.7 % (42-78); TOTAL CELLS COUNTED % (AUTO) 100 %; WHITE BLOOD COUNT 9.8 10^3/uL (4.0-10.5)
[2017-10-19 06:14] LABS: ALANINE AMINOTRANSFERASE 70 U/L (9-52); ALBUMIN 3.5 g/dL (3.5-5.0); ALKALINE PHOSPHATASE 162 U/L (38-126); AMYLASE 36 U/L (30-110); ANION GAP 10 (5-19); ASPARTATE AMINO TRANSFERASE 90 U/L (14-36); BILIRUBIN,DIRECT 0.7 mg/dL (0.0-0.4); BILIRUBIN,TOTAL 0.7 mg/dL (0.2-1.3); BLOOD UREA NITROGEN 4 mg/dL (7-20); CALCIUM 9.3 mg/dL (8.4-10.2); CARBON DIOXIDE 18 mmol/L (22-30); CHLORIDE 109 mmol/L (98-107); GLUCOSE 86 mg/dL (75-110); LIPASE 43.5 U/L (23-300); POTASSIUM 4.3 mmol/L (3.6-5.0); SODIUM 137.1 mmol/L (137-145); TOTAL PROTEIN 6.5 g/dL (6.3-8.2)
[2017-10-19 06:19] LABS: APPEARANCE,URINE CLEAR; BILIRUBIN,URINE NEGATIVE (NEGATIVE); COLOR,URINE YELLOW; GLUCOSE, URINE NEGATIVE (NEGATIVE); KETONES,URINE NEGATIVE (NEGATIVE); LEUKOCYTE ESTERASE,URINE TRACE (NEGATIVE); NITRITE,URINE NEGATIVE (NEGATIVE); PROTEIN,URINE NEGATIVE (NEGATIVE); URINE SPECIFIC GRAVITY 1.008
[2017-10-19 06:43] LABS: URINE AMPHETAMINES SCREEN NEGATIVE; URINE BARBITURATES SCREEN NEGATIVE; URINE BENZODIAZEPINES SCREEN NEGATIVE; URINE COCAINE SCREEN NEGATIVE; URINE MARIJUANA (THC) SCREEN NEGATIVE; URINE METHADONE SCREEN NEGATIVE; URINE PHENCYCLIDINE SCREEN NEGATIVE
== END 2017-10-19 07:08 | disposition home or self-care (01) ==
LOC: LC 05:06
PROVIDERS: ATTEND Obstetrics & Gynecology
PROC: 4A1HXCZ Monitoring of Products of Conception, Cardiac Rate, External Approach (ICD-10-PCS; principal; 2017-10-19)
DX: O36.8130 Decreased fetal movements, third trimester, not applicable or unspecified (principal); R10.9 Unspecified abdominal pain; Z3A.29 29 weeks gestation of pregnancy
CPT/HCPCS: 36415; 80053; 80307; 81005; 82150; 83690; 85025; 94760

== ENCOUNTER 2017-11-21 20:58 | Emergency (ER) | payer BC, MEDICAID ==
[2017-11-21 21:19] VITALS: BP 110/75
--- NOTE | 2017-11-21 22:17 | ER Document Report ---
ED GI/ - General Chief Complaint: Flu Symptoms Stated Complaint: POSSIBLE FLU SYMPTOMS Time Seen by Provider: 11/21/17 22:03 Mode of Arrival: Ambulatory Information source: Patient TRAVEL OUTSIDE OF THE [place] IN LAST 30 DAYS: No - HPI Patient complains to provider of: Abdominal pain Notes: 11/21/17 22:14 The patient is here with multiple complaints. The patient is 34 weeks with her first . States she has been having a lot of abdominal cramping has been having a lot of vaginal discharge. She denies any vaginal bleeding. She states that she has had intermittent nausea vomiting throughout her whole . She had an episode earlier today where she felt lightheaded and got hot and felt like she was going to pass out. She does not feel that way now. She denies any fever. She denies any other complaints at this time. - Related Data Allergies/Adverse Reactions: No Known Allergies Allergy (Verified 10/19/17 05:19) Past Medical History - Social History Smoking Status: Unknown if Ever Smoked Family History: Reviewed & Not Pertinent Neurological Medical History: Reports: Hx Migraine Renal/ Medical History: Denies: Hx Peritoneal Dialysis Past Surgical History: Reports: Hx Oral Surgery - wisdom, Hx Tonsillectomy - Immunizations Immunizations up to date: Yes Hx Diphtheria, Pertussis, Tetanus Vaccination: Yes Review of Systems - Review of Systems -: Yes All other systems reviewed and negative Physical Exam - Vital signs Vitals: Temp Pulse Resp BP Pulse Ox 98.4 F 90 18 110/75 98 11/21/17 21:18 11/21/17 21:18 11/21/17 21:18 11/21/17 21:18 11/21/17 21:18 - Notes Notes: GENERAL: alert, cooperative, nontoxic, no distress. HEAD: normocephalic, atraumatic EYES: conjunctiva pink without discharge, no external redness or swelling. EARS: no external swelling, no external redness NOSE: atraumatic, no external swelling MOUTH/THROAT: mucous membranes moist and pink, posterior pharynx without erythema, swelling, exudate. No trismus or drooling. NECK: soft, supple, full range of motion, no meningismus. CHEST: no distress, lungs clear and equal throughout. No wheezing, rales, rhonchi. CARDIAC: regular rate and rhythm, no murmur, normal capillary refill, normal pulses. No peripheral edema noted. ABDOMEN: Soft, nontender. Gravid abdomen. BACK: full range of motion, no CVA tenderness. EXTREMITIES: full range of motion of all extremities. No redness, no swelling. NEURO: alert and oriented x 3, no focal deficits, full range of motion of all extremities. PYSCH: appropriate mood, affect. Patient is cooperative. SKIN: pink, warm, dry, no rash. Course - Re-evaluation Re-evalutation: 11/21/17 22:15 Patient is here with complaints of abdominal cramping and vaginal discharge. She is 34 weeks . Patient had a medical screening exam here in the emergency department and will be sent up to labor and delivery for evaluation of her abdominal cramping and discharge due to her advanced gestational age. - Vital Signs Vital signs: Temp Pulse Resp BP Pulse Ox 98.4 F 90 18 110/75 98 11/21/17 21:18 11/21/17 21:18 11/21/17 21:18 11/21/17 21:18 11/21/17 21:18 Discharge - Discharge Clinical Impression: Qualifiers: Weeks of gestation: 34 weeks Qualified Code(s): Z3A.34 - 34 weeks gestation of Abdominal pain Qualifiers: Abdominal location: lower abdomen, unspecified Qualified Code(s): R10.30 - Lower abdominal pain, unspecified Condition: Stable Disposition: LABOR CHECK Instructions: Abdominal Pain ([facility]) Additional Instructions: Go directly to labor and delivery for further evaluation and management of your abdominal pain and vaginal discharge.
== END 2017-11-21 22:21 | disposition admitted as inpatient to this hospital (09) ==
LOC: ER 20:58
DX: O26.93 Pregnancy related conditions, unspecified, third trimester (principal); R10.30 Lower abdominal pain, unspecified; Z3A.34 34 weeks gestation of pregnancy
CPT/HCPCS: 99283

== ENCOUNTER 2017-11-21 22:23 | Outpatient (CLI) | payer BC, MEDICAID ==
[2017-11-21 23:17] LABS: AMNISURE (ROM) NEGATIVE (NEGATIVE)
[2017-11-21] MEDS ORDERED: BUTALB/ACETAMINOPHEN/CAFFEINE 1 TAB EACH PO ONE (23:38)
[2017-11-21 23:47] LABS: APPEARANCE,URINE SLIGHTLY-CLOUDY; BILIRUBIN,URINE NEGATIVE (NEGATIVE); COLOR,URINE YELLOW; GLUCOSE, URINE NEGATIVE (NEGATIVE); KETONES,URINE NEGATIVE (NEGATIVE); LEUKOCYTE ESTERASE,URINE TRACE (NEGATIVE); NITRITE,URINE NEGATIVE (NEGATIVE); PROTEIN,URINE NEGATIVE (NEGATIVE); URINE SPECIFIC GRAVITY 1.008; UROBILINOGEN,URINE NEGATIVE mg/dL (<2.0)
[2017-11-22 00:01] LABS: URINE AMPHETAMINES SCREEN NEGATIVE; URINE BARBITURATES SCREEN NEGATIVE; URINE BENZODIAZEPINES SCREEN NEGATIVE; URINE COCAINE SCREEN NEGATIVE; URINE MARIJUANA (THC) SCREEN NEGATIVE; URINE METHADONE SCREEN NEGATIVE; URINE PHENCYCLIDINE SCREEN NEGATIVE
[2017-11-22] MEDS ORDERED: BUTALB/ACETAMINOPHEN/CAFFEINE 1 TAB EACH ONE (00:04)
--- NOTE | 2017-11-22 00:45 | Non Stress Test Report ---
Non Stress Test Datetime Report Generated by CPN: 11/22/2017 00:44 DEMOGRAPHIC EGA NST: 34.2 INDICATION Indication for Study: Ordered by Provider; Other Indication for Study (NST) Other: LC URINE RESULTS Urine Protein, NST: Negative Urine Ketones - NST: Negative Urine Glucose - NST: Negative Urine Blood - NST: Negative MONITORING Monitor Explained: Monitor Explained; Test Explained; Patient Verbalized Understanding Time on Monitor: 11/21/2017 22:56 Time off Monitor: 11/21/2017 23:46 NST Duration: 50 NST INTERVENTIONS NST Interventions: PO Hydration; Reposition Patient Physician Notified NST: Dr Jaleel, Dr Fulton BABY A: [id number] BABY A Movement : Present Contraction Frequency : Irregular FHR Baseline : 125 Accelerations : 15X15 Decelerations : Variable Variability : Moderate 6-25bpm NST Review: Meets Criteria for Reactive NST NST Review and Verified By : PASTOR Cee NST REPORT Report Trigger: Send Report
== END 2017-11-22 00:16 | disposition home or self-care (01) ==
LOC: LC 22:23
PROVIDERS: ATTEND Obstetrics & Gynecology
PROC: 4A1HXCZ Monitoring of Products of Conception, Cardiac Rate, External Approach (ICD-10-PCS; principal; 2017-11-21)
DX: O47.03 False labor before 37 completed weeks of gestation, third trimester (principal); O36.8330 Maternal care for abnormalities of the fetal heart rate or rhythm, third trimester, not applicable or unspecified; Z3A.34 34 weeks gestation of pregnancy
CPT/HCPCS: 59025; 84112; 81001; 80307; J3490

== ENCOUNTER 2017-12-05 14:17 | Outpatient (CLI) | payer BC, MEDICAID ==
[2017-12-05 15:04] LABS: APPEARANCE,URINE CLEAR; BILIRUBIN,URINE NEGATIVE (NEGATIVE); COLOR,URINE YELLOW; GLUCOSE, URINE NEGATIVE (NEGATIVE); KETONES,URINE NEGATIVE (NEGATIVE); LEUKOCYTE ESTERASE,URINE TRACE (NEGATIVE); NITRITE,URINE NEGATIVE (NEGATIVE); PROTEIN,URINE NEGATIVE (NEGATIVE); URINE SPECIFIC GRAVITY 1.006
[2017-12-05 15:22] LABS: URINE AMPHETAMINES SCREEN NEGATIVE; URINE BARBITURATES SCREEN NEGATIVE; URINE BENZODIAZEPINES SCREEN NEGATIVE; URINE COCAINE SCREEN NEGATIVE; URINE MARIJUANA (THC) SCREEN NEGATIVE; URINE METHADONE SCREEN NEGATIVE; URINE PHENCYCLIDINE SCREEN NEGATIVE
[2017-12-05] MEDS ORDERED: CYCLOBENZAPRINE HCL 10 MG TABLET PO ONE (15:30)
[2017-12-05] MEDS ORDERED: ONDANSETRON 4 MG TAB.RAPDIS PO ONE (15:30)
[2017-12-05] MEDS ORDERED: CYCLOBENZAPRINE HCL 10 MG TABLET ONE (15:31)
[2017-12-05] MEDS ORDERED: ONDANSETRON 4 MG TAB.RAPDIS ONE (15:31)
--- NOTE | 2017-12-05 15:53 | Non Stress Test Report ---
Non Stress Test Datetime Report Generated by CPN: 12/05/2017 15:52 DEMOGRAPHIC EGA NST: 36.2 INDICATION Indication for Study: Ordered by Provider Indication for Study (NST) Other: Labor Check MONITORING Monitor Explained: Monitor Explained; Test Explained; Patient Verbalized Understanding Time on Monitor: 12/05/2017 14:34 Time off Monitor: 12/05/2017 15:24 NST Duration: 50 NST INTERVENTIONS NST Interventions: PO Hydration; Reposition Patient Physician Notified NST: DrFreda Donaldo BABY A: [id number] BABY A Movement : Present Contraction Frequency : 0 FHR Baseline : 130 Accelerations : 15X15 Decelerations : None Variability : Moderate 6-25bpm NST Review: Meets Criteria for Reactive NST NST Review and Verified By : PASTOR Diggs Results: Reactive NST REPORT Report Trigger: Send Report
== END 2017-12-05 15:33 | disposition home or self-care (01) ==
LOC: LC 14:17
PROVIDERS: ATTEND Student in an Organized Health Care Education/Training Program
PROC: 4A1HXCZ Monitoring of Products of Conception, Cardiac Rate, External Approach (ICD-10-PCS; principal; 2017-12-05)
DX: O47.03 False labor before 37 completed weeks of gestation, third trimester (principal); Z3A.36 36 weeks gestation of pregnancy
CPT/HCPCS: 59025; 80307; 81005; S0119

== ENCOUNTER 2017-12-10 00:54 | Inpatient (IN) | payer BC, MEDICAID ==
[2017-12-10 01:32] LABS: HEMATOCRIT 33.6 % (36.0-47.0); HEMOGLOBIN 10.9 g/dL (12.0-15.5); MEAN CORPUSCULAR HEMOGLOBIN 25.2 pg (27.0-33.4); MEAN CORPUSCULAR HGB CONC 32.6 g/dL (32.0-36.0); MEAN CORPUSCULAR VOLUME 77 fl (80-97); PLATELET COUNT 298 10^3/uL (150-450); RED BLOOD COUNT 4.34 10^6/uL (3.72-5.28); RED CELL DISTRIBUTION WIDTH 14.3 % (11.5-14.0); WHITE BLOOD COUNT 8.1 10^3/uL (4.0-10.5)
[2017-12-10 01:43] LABS: APPEARANCE,URINE SLIGHTLY-CLOUDY; BILIRUBIN,URINE NEGATIVE (NEGATIVE); COLOR,URINE YELLOW; GLUCOSE, URINE NEGATIVE (NEGATIVE); KETONES,URINE NEGATIVE (NEGATIVE); LEUKOCYTE ESTERASE,URINE MODERATE (NEGATIVE); NITRITE,URINE NEGATIVE (NEGATIVE); PROTEIN,URINE NEGATIVE (NEGATIVE); URINE SPECIFIC GRAVITY 1.014
[2017-12-10] MEDS ORDERED: RINGERS SOLUTION,LACTATED 300 ML IV ONE (02:04)
[2017-12-10] MEDS ORDERED: DINOPROSTONE 10 MG VAGINAL INSERT.SR PV PRN (02:04)
[2017-12-10] MEDS ORDERED: RINGERS SOLUTION,LACTATED 1,000 ML IV PRN (02:04)
[2017-12-10 02:15] LABS: URINE AMPHETAMINES SCREEN NEGATIVE; URINE BARBITURATES SCREEN NEGATIVE; URINE BENZODIAZEPINES SCREEN NEGATIVE; URINE COCAINE SCREEN NEGATIVE; URINE MARIJUANA (THC) SCREEN NEGATIVE; URINE METHADONE SCREEN NEGATIVE; URINE PHENCYCLIDINE SCREEN NEGATIVE
[2017-12-10] MEDS ORDERED: DINOPROSTONE 10 MG VAGINAL INSERT.SR ONE ×2 (02:24→15:04)
--- NOTE | 2017-12-10 03:13 | Admission Physical ---
Datetime Report Generated by CPN: 12/10/2017 03:13 CURRENT ADMISSION Chief Complaint: Scheduled Induction of Labor Indication for Induction- Other: Intrahepatic Cholestasis of Admit Impression : Term, Intrauterine ; No Active Labor Admit Plan: Admit to Unit; Initiate Labor Induction Protocol ALLERGIES Medication Allergies: No Medication Allergies: No Known Allergies (12/05/2017) Latex: No Latex Allergies Food Allergies: none Environmental Allergies: none OBSTETRICAL HISTORY EDC: 12/31/2017 00:00 : 1 Para: 0 Term: 0 : 0 SAB: 0 IAB: 0 Ectopic: 0 Livin Cesareans: 0 VBACs: 0 Multiple Births: 0 Gestational Diabetes: No Rh Sensitization: No Incompetent Cervix: No EDGAR: No Infertility: No ART Treatment: No Uterine Anomaly: No IUGR: No Hx Previous C/S: No Macrosomia: No Hx Loss/Stillborn: No PIH: No Hx : No Placenta Previa/Abruption: No Depression/PP Depression: No PTL/PROM: No Post Hemorrhage: No Current Procedures: NST Obstetrical History Comments: G1- current SEE RECORDS Alcohol: No Marijuana : No Cocaine: No Other Illicit Drugs: No Cigarettes: Never Smoker. [id number] MEDICAL HISTORY Diabetes: No Blood Transfusion: No Pulmonary Disease (Asthma, TB): No Breast Disease: No Hypertension: No Industrial Editor Surgery: No Heart Disease: No Hosp/Surgery: No Autoimmune Disorder: No Anesthetic Complications: No Kidney Disease: No Abnormal Pap Smear: Yes Neuro/Epilepsy: No Psychiatric Disorders: No Other Medical Diseases: No Hepatitis/Liver Disease: No Significant Family History: No Varicosities/Phlebitis: No Trauma/Violence : No Thyroid Dysfunction: No Medical History Comments: Hx: low grade squamous intraepithelial lesion (LGSIL), syncope episode INFECTIOUS HISTORY Gonorrhea: No Genital Herpes: No Chlamydia: No Tuberculosis: No Syphilis: No Hepatitis: No HIV/AIDS Exposure: No Rash or Viral Illness: No HPV: No PHYSICAL EXAM General: Normal HEENT: Normal Neurologic: Normal Thyroid: Deferred Heart: Normal Lungs: Normal Breast: Deferred Back: Normal Abdomen: Normal Genitourinary Exam: Normal Extremities: Normal DTRs: Normal Pelvic Type: Adequate Vital Signs: Reviewed VAGINAL EXAM Dilatation: 0 Effacement: 0 Station: -4 Contraction Comments: none MEMBRANES Membranes: Intact FETUS A EGA: 37.0 Monitoring: External US FHR- Baseline: 125 Variability: Moderate 6-25bpm Accelerations: 15X15 Decelerations: None FHR Category: Category I Presentation: Vertex Admit Comment: 22yo at 37+0ega presents for Scheduled IOL for Intrahepatic CHolestasis of . Bile Acids were greater than 50. c/b BMI 38, Rubella NI, LGSIL. Pt reports benadryl not working. Dx of ICP made yesterday. GBS negative. Plan for CBC with CMP and coags on admission and repeat as needed. Anticipate . Reviewed IOl process with patient and reviewed not fast process at times. May need to change to pitocin/Cooks, Cytotec in am. PLANS FOR LABOR AND DELIVERY Labor and Delivery: None Pain Management: Epidural Feeding Preference: Breast Benefit of Breast Feed Discussed: Yes Circumcision: Yes INFORMED CONSENT Informed Consent Obtained: Vaginal Delivery; Induction of Labor; Risks, Benefits and Alternatives Discussed Signature: with User ID: [email or web address]
[2017-12-10] MEDS ORDERED: ACETAMINOPHEN 325 MG TABLET ONE ×2 (06:13→20:24)
[2017-12-10 07:14] LABS: INTERNATIONAL RATION (INR) 0.82; PROTHROMBIN TIME 11.9 SEC (11.4-15.4)
[2017-12-10 07:15] LABS: FIBRINOGEN 489 mg/dL (209-497); PARTIAL THROMBOPLASTIN TIME 28.1 SEC (23.5-35.8)
[2017-12-10 07:17] LABS: ALANINE AMINOTRANSFERASE 61 U/L (9-52); ALKALINE PHOSPHATASE 206 U/L (38-126); ANION GAP 6 (5-19); ASPARTATE AMINO TRANSFERASE 30 U/L (14-36); BILIRUBIN,DIRECT 0.4 mg/dL (0.0-0.4); BILIRUBIN,TOTAL 0.4 mg/dL (0.2-1.3); BLOOD UREA NITROGEN 8 mg/dL (7-20); CARBON DIOXIDE 21 mmol/L (22-30); CHLORIDE 110 mmol/L (98-107); GLUCOSE 76 mg/dL (75-110); POTASSIUM 3.9 mmol/L (3.6-5.0); SODIUM 137.4 mmol/L (137-145); TOTAL PROTEIN 6.3 g/dL (6.3-8.2)
--- NOTE | 2017-12-10 09:45 | L&D Progress Notes ---
PROGRESS NOTES Datetime Report Generated by CPN: 12/10/2017 09:45 PROGRESS NOTE Impression: Normal Progression of Labor Procedures: Sterile Vag Exam Plan: Continue Present Management Informed Consent Obtained: Vaginal Delivery; Induction of Labor; Risks, Benefits and Alternatives Discussed Informed Consent Obtained: Vaginal Delivery; Induction of Labor; Risks, Benefits and Alternatives Discussed Comment: 22 yo admitted for intrahepatic cholestasis EDC 12/31/17 EGA 37 weeks Intrahepatic cholestasis Obesity Rubella non immune cervidil in place reviewed with pt/ remove cervidil now/ cytotec 50 mcg po and 25 mcg pv may opt for pitocin later this afternoon plan of care reviewed with pt r/b/a discussed anticipate VAGINAL EXAM Dilatation: 0 Effacement: 0 Station: -4 Contractions: none MEMBRANES Membranes: Intact FETUS A FHR - Baseline: 120 Monitoring: External US Variability: Minimal - Undetectable to <=5bpm Accelerations: 10X10 Decelerations: None FHR Category: Category I Presentation: Vertex SIGNATURE SIGNATURE: [id number];[id number];[id number] SIGNATURE: [id number];[id number] SIGNATURE: [id number] SIGNATURE: [id number] Assignment: China Marmolejo MD Signature: with User ID: [email or web address] : with User ID: [email or web address]
[2017-12-10] MEDS ORDERED: MISOPROSTOL 0.1 MG TABLET ONE (10:02)
[2017-12-10] MEDS: MISOPROSTOL 0.1 MG TABLET PO SCH ×2 (10:34→15:09)
[2017-12-10] MEDS: MISOPROSTOL 0.1 MG TABLET PV SCH ×2 (10:34→15:09)
[2017-12-10] MEDS ORDERED: DINOPROSTONE 10 MG VAGINAL INSERT.SR PV ONE (16:00)
[2017-12-10] MEDS ORDERED: PROMETHAZINE HCL INJ 25 MG/1 ML VIAL IV ONE (16:23)
[2017-12-10] MEDS ORDERED: NALBUPHINE HCL INJ 10 MG/1 ML AMPULE INJ ONE (16:23)
[2017-12-10] MEDS ORDERED: PROMETHAZINE HCL INJ 25 MG/1 ML VIAL ONE (16:27)
[2017-12-10] MEDS ORDERED: NALBUPHINE HCL INJ 10 MG/1 ML AMPULE ONE (16:27)
[2017-12-11] MEDS ORDERED: ACETAMINOPHEN 325 MG TABLET ONE (02:58)
[2017-12-11] MEDS ORDERED: MAG HYDROX/AL HYDROX/SIMETH SUSP 30 ML UDCUP ONE (03:38)
[2017-12-11] MEDS ORDERED: OXYTOCIN/NORMAL SALINE 20 UNIT/1,000 ML RTUINJ ONE ×2 (04:43→19:16)
[2017-12-11] MEDS: ZOLPIDEM TARTRATE 5 MG TABLET PO SCH ×2 (08:58→23:19)
--- NOTE | 2017-12-11 09:03 | L&D Progress Notes ---
PROGRESS NOTES Datetime Report Generated by CPN: 12/11/2017 09:03 PROGRESS NOTE Impression: Reassuring Heart Rate Procedures: Sterile Vag Exam Procedures- Other: louises catheter placed without difficulty Plan: Continue Present Management Informed Consent Obtained: Risks, Benefits and Alternatives Discussed Vital Signs : Reviewed Comment: Cooks catheter placed Pitocin at 20 mg Will continue present managment VAGINAL EXAM Dilatation: 2 Effacement: 70 Station: -1 Contractions: irreg MEMBRANES Membranes: Intact FETUS A FHR - Baseline: 145 Monitoring: External US Variability: Moderate 6-25bpm Decelerations: None FETUS C SIGNATURE: [id number];[id number];[id number] Assignment: Joe Serna MD Signature: with User ID: [email or web address] : with User ID: [email or web address]
[2017-12-11] MEDS ORDERED: PROMETHAZINE HCL INJ 25 MG/1 ML VIAL ONE (09:22)
[2017-12-11] MEDS ORDERED: MORPHINE SULFATE 10 MG/ML INJ ONE (09:25)
[2017-12-11] MEDS ORDERED: MORPHINE SULFATE 10 MG/ML INJ IV ONE (10:12)
[2017-12-11] MEDS ORDERED: PROMETHAZINE HCL INJ 25 MG/1 ML VIAL IV ONE (10:14)
--- NOTE | 2017-12-11 14:02 | L&D Progress Notes ---
PROGRESS NOTES Datetime Report Generated by CPN: 12/11/2017 14:01 PROGRESS NOTE Impression: Normal Progression of Labor; Reassuring Heart Rate Procedures: Artificial ROM; Intrauterine Pressure Catheter; Scalp Electrode Plan: Continue Present Management; Induction Informed Consent Obtained: Vaginal Delivery Vital Signs : Reviewed Comment: Barba out a while ago, coping well Internals placed without difficulty AROM, clear Anticipate VAGINAL EXAM Dilatation: 7 Effacement: 70 Station: 0 Contractions: 2-5 MEMBRANES Amniotic Fluid Color: Clear FETUS A FHR - Baseline: 125 Monitoring: External US Variability: Moderate 6-25bpm Accelerations: Absent Decelerations: Early FHR Category: Category I FETUS C SIGNATURE: [id number];[id number];[id number] Assignment: Joe Serna MD Signature: with User ID: [email or web address] : with User ID: [email or web address]
[2017-12-11] MEDS ORDERED: EPHEDRINE SULFATE INJ 50 MG/1 ML AMPULE ONE (16:27)
[2017-12-11] MEDS ORDERED: BUPIVACAINE HCL 0.25 % INJ/PF (2.5 MG/1 ML) 30 ML VIAL ONE (16:28)
[2017-12-11] MEDS ORDERED: FENTANYL/BUPIVACAINE/NS/PF 200 MCG/100 ML RTUINJ EPI ONE (16:28)
[2017-12-11] MEDS ORDERED: LIDOCAINE 2% INJ-PF (20 MG/ML) 10 ML AMPUL ONE (17:22)
[2017-12-11] MEDS ORDERED: ONDANSETRON HCL INJ/PF 4 MG/2 ML SDV ONE (18:29)
[2017-12-11] MEDS ORDERED: MISOPROSTOL 0.2 MG TABLET ONE (19:12)
[2017-12-11] MEDS ORDERED: LIDOCAINE 1% INJ-PF (10 MG/ML) 30 ML SDV ONE (19:12)
--- NOTE | 2017-12-11 19:48 | L&D Progress Notes ---
PROGRESS NOTES Datetime Report Generated by CPN: 12/11/2017 19:48 PROGRESS NOTE Comment: Delivered viable male . 1st degree laceration repaired using 2-0Chromic and 3-0 chromic FETUS C SIGNATURE: [id number];[id number];[id number] Signature: with User ID: [email or web address]
[2017-12-11 19:50] LABS: ARTERIAL BLOOD BASE EXCESS -5.2 mmol/L; ARTERIAL BLOOD H2CO3 1.43 mmol/L (1.05-1.35); ARTERIAL BLOOD HCO3 21.8 mmol/L (20-26); ARTERIAL BLOOD O2 SATURATION 26.4 % (94-98); ARTERIAL BLOOD PCO2 47.4 mmHg (35-45); ARTERIAL BLOOD PH 7.28 (7.35-7.45); ARTERIAL BLOOD TOTAL CO2 23.2 mmol/L (21-25)
[2017-12-11] MEDS ORDERED: DIPH/PERTUSS(ACELL)/TETANUS VAC/PF 0.5 ML SYR (>=10YO) IM PRN (19:52)
[2017-12-11] MEDS ORDERED: DIBUCAINE 1% OINTMENT 28 GM TP PRN (19:52)
[2017-12-11] MEDS ORDERED: BENZOCAINE/MENTHOL AEROSOL SPRAY 56 ML TOP PRN (19:52)
[2017-12-11] MEDS ORDERED: OXYTOCIN/NORMAL SALINE 20 UNIT/1,000 ML RTUINJ IV PRN (19:52)
[2017-12-11] MEDS ORDERED: ZOLPIDEM TARTRATE 5 MG TABLET PO PRN (19:52)
[2017-12-11] MEDS ORDERED: ACETAMINOPHEN WITH CODEINE #3 TABLET PO PRN ×2 (19:52)
[2017-12-11] MEDS ORDERED: MEASLES,MUMPS&RUBELLA VACC/PF 0.5 ML VIAL SUBCUT PRN (19:52)
[2017-12-11] MEDS ORDERED: HYDROCODONE/ACETAMINOPHEN 5-325 MG TABLET PO PRN (19:52)
[2017-12-11 19:56] LABS: ARTERIAL BLOOD FIO2 CORD BLOOD; ARTERIAL BLOOD PO2 19.9 mmHg (80-100)
--- NOTE | 2017-12-11 19:57 | PDOC PROGRESS REPORT ---
Subjective-OB Progress Note for:: 12/11/17 Subjective: doing well. s/p vaginal delivery with 1st degree laceration. plans to breastfeed. Physical Exam (OB) Vital Signs: Intake & Output 12/10/17 12/11/17 12/12/17 06:59 06:59 06:59 Weight 103.1 kg - General General Appearance: Appears well - Lochia Lochia Amount: Small 10-25 ml - Abdomen Description: Soft Fundal Height: u/u - u/2 Objective-Diagnostic Laboratory: 12/10/17 01:18 12/10/17 06:53 Assessment and Plan(PN) Plan:: s/p 1. routine care 2. encourage 3. discharge planning
--- NOTE | 2017-12-11 21:22 | Delivery Summary ---
Del Sum A-C Datetime Report Generated by CPN: 12/11/2017 21:21 DELIVERY PERSONNEL DELIVERY PERSONNEL: [id number] Delivery Doctor:: Dr. Kim Labor and Delivery Nurse:: Jacquelyn Castro RNC Labor and Delivery Nurse:: Aparna Benitez RN Storage Wharfage Clerk/SOAKER: Rk Welch, SOAKER Additional Personnel: : Graciela Ojeda RN MATERNAL INFORMATION Delivery Anesthesia: Epidural Medications After Delivery: Pitocin Drip 20 Units/1000ml NSS Maternal Complications: None LABOR SUMMARY EDC: 12/31/2017 00:00 No. Babies in Womb: 1 Attempted: No Labor Anesthesia: Epidural LABOR INFORMATION Reason for Induction: Other Reason for Induction- Other: Cholestasis Onset of Labor: 12/11/2017 13:55 Complete Dilatation: 12/11/2017 19:05 Cervical Ripening Agents: Cervidil; Cytotec @ Other Ripening Agents: removed cervidil Oxytocin: Induction Group B Beta Strep: Negative Antibiotics # of Doses: N/A Antibiotics Time of Last Dose: 0 Steroids Given: None Reason Steroids Not Administered: Not Applicable MEMBRANES Membranes Rupture Method: Artificial Rupture of Membranes: 12/11/2017 13:55 Length of Rupture (hr): 5.53 Amniotic Fluid Color: Clear Amniotic Fluid Amount: Moderate Amniotic Fluid Odor: None STAGES OF LABOR Stage 1 hr: 5 Stage 1 min: 10 Stage 2 hr: 0 Stage 2 min: 22 Stage 3 hr: 0 Stage 3 min: 3 Total Time in Labor hr: 5 Total Time in Labor min: 35 VAGINAL DELIVERY Episiotomy: None Laceration #1: Vaginal Laceration Extension #1: First Degree Laceration #2: None Laceration #3: None Laceration Repair: Yes Sponge Count Correct: N/A Sharps Count Correct: N/A CSECTION DELIVERY Primary Indication: N/A Secondary Indication: N/A CSection Incidence: N/A Labor: N/A Elective: N/A CSection Incision: N/A BABY A INFORMATION Delivery Date/Time: 12/11/2017 19:27 Method of Delivery: Vaginal Born in Route : No : N/A Forceps: N/A Vacuum Extraction: N/A Shoulder Dystocia : No PRESENTATION/POSITION BABY A Presentation: Cephalic Cephalic Presentation: Vertex Vertex Position: Right Occipital Anterior Breech Presentation: N/A PLACENTA INFORMATION BABY A Placenta Delivery Time : 12/11/2017 19:30 Placenta Method of Delivery: Spontaneous Placenta Status: Delivered SCORES BABY A Heart Rate 1 min: >100 bpm Resp Effort 1 min: Good Cry Reflex Irritability 1 min: Cough or Sneeze or Pulls Away Muscle Tone 1 min: Active Motion Color 1 min: Blue/Pale Resuscitation Effort 1 min: N/A SCORE 1 MIN: 8 Heart Rate 5 min: >100 bpm Resp Effort 5 min: Good Cry Reflex Irritability 5 min: Cough or Sneeze or Pulls Away Muscle Tone 5 min: Active Motion Color 5 min: Body [place], Extremities Blue Resuscitation Effort 5 min: N/A SCORE 5 MIN: 9 INFANT INFORMATION BABY A Gestational Age at Delivery: 37.1 Gestational Status: Early Term- 37- 38.6 Weeks Outcome : Liveborn Condition : Stable Sex: Male WEIGHT/LENGTH BABY A Birthweight (gm): 2670 Weight (lb): 5 Weight (oz): 14 Infant Length (in): 20.00 Length (cm): 50.80 CORD INFORMATION BABY A No. Cord Vessels: 3 Nuchal Cord : Around Neck x1, Loose Cord Blood Taken: Yes-For Eval (Mom's Blood Type - or O+) Suction: Mouth; Nose ASSESSMENT BABY A Complications: None Physical Findings at Delivery: Within Normal Limits Physical Findings- Other: 1st degree perineal/vaginal laceration Infant Respirations: Appears Normal Skin to Skin: Yes Skin to Skin Time (min): 60 Manufacturing Manager/ALS Called : No Care By: Jennifer Marin RN BABY B INFORMATION : N/A SIGNATURES Signature: with User ID: [email or web address]
[2017-12-11] MEDS: IBUPROFEN 800 MG TABLET PO SCH (23:12)
[2017-12-12] MEDS: IBUPROFEN 800 MG TABLET PO SCH ×3 (05:18→21:53)
[2017-12-12 07:32] LABS: HEMATOCRIT 27.3 % (36.0-47.0); MEAN CORPUSCULAR HEMOGLOBIN 25.6 pg (27.0-33.4); MEAN CORPUSCULAR HGB CONC 33.1 g/dL (32.0-36.0); MEAN CORPUSCULAR VOLUME 78 fl (80-97); PLATELET COUNT 211 10^3/uL (150-450); RED BLOOD COUNT 3.52 10^6/uL (3.72-5.28); RED CELL DISTRIBUTION WIDTH 14.4 % (11.5-14.0); WHITE BLOOD COUNT 10.7 10^3/uL (4.0-10.5)
--- NOTE | 2017-12-12 08:48 | PDOC PROGRESS REPORT ---
Subjective-OB Progress Note for:: 12/12/17 Subjective: Day #1 s/p Doing well, bonding with baby, , states lochia is stable, pain well controlled, voiding without difficulty. Physical Exam (OB) Vital Signs: Temp Pulse Resp BP Pulse Ox 98.0 F 86 16 111/57 L 99 12/12/17 07:49 12/12/17 07:49 12/12/17 07:49 12/12/17 07:49 12/12/17 07:49 - Lochia Lochia Amount: Scant < 10 ml Lochia Color: Rubra/Red - Abdomen Description: Soft Hernia Present: No Fundal Description: Firm, Midline Fundal Height: u/u - u/2 Objective-Diagnostic Laboratory: 12/12/17 07:18 12/10/17 06:53 12/11/17 12/12/17 19:29 07:18 WBC 10.7 H RBC 3.52 L Hgb 9.0 L Hct 27.3 L MCV 78 L MCH 25.6 L MCHC 33.1 RDW 14.4 H Plt Count 211 Carbonic Acid 1.43 H HCO3/H2CO3 Ratio 15:1 ABG pH 7.28 L ABG pCO2 47.4 H ABG pO2 19.9 L* ABG HCO3 21.8 ABG O2 Saturation 26.4 L ABG Base Excess -5.2 FiO2 CORD BLOOD Assessment and Plan(PN) - Assessment and Plan (1) Vaginal delivery Is this a current diagnosis for this admission?: Yes Plan: routine pp care - Time Spent with Patient Time with patient: Less than 15 minutes Critical Time spent with patient: Less than 15 minutes Medications reviewed and adjusted accordingly: Yes - Disposition Anticipated Discharge: Home Within: within 24 hours
[2017-12-12] MEDS: FERROUS SULFATE 325 MG TABLET PO SCH ×2 (09:41→16:43)
[2017-12-12] MEDS: DOCUSATE SODIUM 100 MG CAPSULE PO SCH ×2 (09:41→16:43)
[2017-12-12] MEDS: PRENATAL VITAMIN W DHA CAPSULE PO SCH (09:41)
[2017-12-12] MEDS: SENNOSIDES/DOCUSATE 8.6-50 MG 1 EACH TABLET PO SCH (09:41)
[2017-12-12] MEDS ORDERED: ACETAMINOPHEN 325 MG TABLET ONE (16:38)
[2017-12-12] MEDS: ACETAMINOPHEN 325 MG TABLET PO PRN (19:49)
[2017-12-12] MEDS: ZOLPIDEM TARTRATE 5 MG TABLET PO SCH (21:53)
[2017-12-13] MEDS: IBUPROFEN 800 MG TABLET PO SCH ×2 (05:58→13:04)
[2017-12-13 08:28] VITALS: BP 120/69
--- NOTE | 2017-12-13 09:15 | PDOC PROGRESS REPORT ---
Subjective-OB Progress Note for:: 12/13/17 Subjective: Doing well, pumping breasts, ready to go home, son needs a circumcision, , voiding, eating well Physical Exam (OB) Vital Signs: Temp Pulse Resp BP Pulse Ox 98.4 F 80 16 120/69 99 12/13/17 08:47 12/13/17 08:47 12/13/17 08:47 12/13/17 08:09 12/13/17 08:47 Intake & Output 12/12/17 12/13/17 12/14/17 06:59 06:59 06:59 Intake Total 300 Balance 300 - Lochia Lochia Amount: Scant < 10 ml Lochia Color: Rubra/Red - Abdomen Description: Tender, Soft Hernia Present: No Fundal Description: Firm, Midline Fundal Height: u/u - u/2 Objective-Diagnostic Laboratory: 12/12/17 07:18 12/10/17 06:53 Assessment and Plan(PN) - Assessment and Plan (1) Vaginal delivery Is this a current diagnosis for this admission?: Yes - Time Spent with Patient Time with patient: Less than 15 minutes Medications reviewed and adjusted accordingly: Yes - Disposition Anticipated Discharge: Home Within: within 24 hours - home today
--- NOTE | 2017-12-13 09:19 | PDOC DISCHARGE SUMMARY ---
Final Diagnosis Discharge Date: 12/13/17 - Final Diagnosis (1) Vaginal delivery Is this a current diagnosis for this admission?: Yes Discharge Data - Discharge Medication Home Medications: Famotidine [Pepcid 20 mg Tablet] 1 tab PO DAILY PRN 12/05/17 Ferrous Sulfate [Feosol 325 mg Tablet] 325 mg PO BID tablet 12/13/17 Vit/Dha [ Multi + Dha Capsule] 1 cap PO DAILY capsule Gestational Age: 37.1 Reason(s) for Admission: Induction of Labor Admission Note: cholestasis Procedures: NST, Ultrasound Intrapartum Procedure(s): Spontaneous Vaginal Delivery Complication(s): Laceration-Vaginal, Laceration-Perineal Laceration-Degree: 1st - [place] Data Baby 1 Male at 1 minute: 8 at 5 minutes: 9 Weight: 2.665 kg Home with Mother: Yes Complications: No - Diagnosis Test Laboratory: Temp Pulse Resp BP Pulse Ox 98.4 F 80 16 120/69 99 12/13/17 08:47 12/13/17 08:47 12/13/17 08:47 12/13/17 08:09 12/13/17 08:47 12/10/17 12/10/17 12/12/17 01:15 01:18 07:18 RBC 4.34 3.52 L Hgb 10.9 L 9.0 L Hct 33.6 L 27.3 L Urine Opiates Screen NEGATIVE - Discharge information/Instructions Discharge Activity: Activity As Tolerated, No Lifting Over 10 Pounds, No Lifting /Push/Pulling, Pelvic Rest Discharge Diet: As Tolerated, Regular Disposition: HOME, SELF-CARE Follow up with: [facility] in: 4, Weeks
[2017-12-13] MEDS: PRENATAL VITAMIN W DHA CAPSULE PO SCH (11:26)
[2017-12-13] MEDS: SENNOSIDES/DOCUSATE 8.6-50 MG 1 EACH TABLET PO SCH (11:27)
[2017-12-13] MEDS: FERROUS SULFATE 325 MG TABLET PO SCH (11:27)
[2017-12-13] MEDS: DOCUSATE SODIUM 100 MG CAPSULE PO SCH (11:28)
[2017-12-13] MEDS: ACETAMINOPHEN 325 MG TABLET PO PRN (14:22)
== END 2017-12-13 19:00 | disposition home or self-care (01) | DRG 775 ==
LOC: LR 00:54 → 2S 12-11 22:23
PROVIDERS: ADMIT Student in an Organized Health Care Education/Training Program; ATTEND Obstetrics & Gynecology
PROC: 4A1HXCZ Monitoring of Products of Conception, Cardiac Rate, External Approach (ICD-10-PCS; 2017-12-10)
PROC: 10H07YZ Insertion of Other Device into Products of Conception, Via Natural or Artificial Opening (ICD-10-PCS; 2017-12-10)
PROC: 4A1H7CZ Monitoring of Products of Conception, Cardiac Rate, Via Natural or Artificial Opening (ICD-10-PCS; 2017-12-10)
PROC: 0U7C7ZZ Dilation of Cervix, Via Natural or Artificial Opening (ICD-10-PCS; 2017-12-10)
PROC: 3E0P7VZ Introduction of Hormone into Female Reproductive, Via Natural or Artificial Opening (ICD-10-PCS; 2017-12-10)
PROC: 10E0XZZ Delivery of Products of Conception, External Approach (ICD-10-PCS; principal; 2017-12-11)
PROC: 0HQ9XZZ Repair Perineum Skin, External Approach (ICD-10-PCS; 2017-12-11)
DX: O26.62 Liver and biliary tract disorders in childbirth (principal); K83.1 Obstruction of bile duct; O69.81X0 Labor and delivery complicated by cord around neck, without compression, not applicable or unspecified; O70.0 First degree perineal laceration during delivery; Z3A.37 37 weeks gestation of pregnancy; Z37.0 Single live birth
CPT/HCPCS: 36415; 80053; 80307; 81005; 82803; 85027; 85384; 85610; 85730; 86592; 86850; 86900; 86901; 94760; C1726; J2270; J2300; J2405; J2550; J2590; J3490

== ENCOUNTER 2018-01-29 05:02 | Emergency (ER) | payer BC, MEDICAID ==
[2018-01-29] MEDS ORDERED: MORPHINE SULFATE 10 MG/ML INJ IV ONE (06:18)
[2018-01-29] MEDS ORDERED: METOCLOPRAMIDE HCL INJ/PF 10 MG/2 ML SDV IV ONE (06:18)
[2018-01-29 07:00] LABS: ABSOLUTE EOSINOPHILS # (AUTO) 0.2 10^3/uL (0.0-0.6); ABSOLUTE LYMPHOCYTES (AUTO) 1.5 10^3/uL (0.5-4.7); ABSOLUTE MONOCYTES (AUTO) 0.3 10^3/uL (0.1-1.4); ABSOLUTE NEUT (AUTO) 5.6 10^3/uL (1.7-8.2); BASOPHILS % (AUTO) 0.6 % (0-2); EOSINOPHILS % (AUTO) 2.2 % (0-6); HEMATOCRIT 32.2 % (36.0-47.0); HEMOGLOBIN 10.4 g/dL (12.0-15.5); LYMPHOCYTES % (AUTO) 19.8 % (13-45); MEAN CORPUSCULAR HEMOGLOBIN 24.6 pg (27.0-33.4); MEAN CORPUSCULAR HGB CONC 32.2 g/dL (32.0-36.0); MEAN CORPUSCULAR VOLUME 76 fl (80-97); MONOCYTES % (AUTO) 3.7 % (3-13); PLATELET COUNT 334 10^3/uL (150-450); RED BLOOD COUNT 4.21 10^6/uL (3.72-5.28); RED CELL DISTRIBUTION WIDTH 15.7 % (11.5-14.0); SEGMENTED NEUTROPHILS % (AUTO) 73.7 % (42-78); TOTAL CELLS COUNTED % (AUTO) 100 %; WHITE BLOOD COUNT 7.6 10^3/uL (4.0-10.5)
[2018-01-29 07:08] LABS: ALANINE AMINOTRANSFERASE 48 U/L (9-52); ALBUMIN 4.1 g/dL (3.5-5.0); ALKALINE PHOSPHATASE 122 U/L (38-126); ANION GAP 11 (5-19); ASPARTATE AMINO TRANSFERASE 75 U/L (14-36); BILIRUBIN,DIRECT 0.2 mg/dL (0.0-0.4); BILIRUBIN,TOTAL 0.2 mg/dL (0.2-1.3); BLOOD UREA NITROGEN 16 mg/dL (7-20); CALCIUM 9.6 mg/dL (8.4-10.2); CARBON DIOXIDE 26 mmol/L (22-30); CHLORIDE 107 mmol/L (98-107); GLUCOSE 86 mg/dL (75-110); LIPASE 75.9 U/L (23-300); POTASSIUM 4.5 mmol/L (3.6-5.0); TOTAL PROTEIN 6.9 g/dL (6.3-8.2)
--- NOTE | 2018-01-29 07:31 | RADIOLOGY REPORT (SQ) ---
EXAM DESCRIPTION: US ABDOMEN LIMITED CLINICAL HISTORY: 22 years Female, RUQ pain Comparison: CT, 10.07.15, report only. LIMITATIONS: None. FINDINGS: Cholelithiasis, 0.2 cm gallbladder wall thickness,, negative sonographic Cintron's test, mild hepatic steatosis, a 1.1-cm (prior 0.6-cm, CT, 10/07/15) diameter common bile duct, no intrahepatic ductal dilation, 10-cm right kidney, partially obscured pancreas, visualized vasculature/abdominal aorta, and no significant ascites appear otherwise unremarkable. IMPRESSION: No acute findings. Cholelithiasis. Nonspecific 1.1 cm common bile duct diameter. No intrahepatic ductal dilation. Mild hepatic steatosis.
[2018-01-29 08:28] LABS: APPEARANCE,URINE CLOUDY; BILIRUBIN,URINE NEGATIVE (NEGATIVE); COLOR,URINE YELLOW; GLUCOSE, URINE NEGATIVE (NEGATIVE); KETONES,URINE NEGATIVE (NEGATIVE); LEUKOCYTE ESTERASE,URINE TRACE (NEGATIVE); NITRITE,URINE NEGATIVE (NEGATIVE); PROTEIN,URINE NEGATIVE (NEGATIVE); URINE SPECIFIC GRAVITY 1.011; UROBILINOGEN,URINE NEGATIVE mg/dL (<2.0)
--- NOTE | 2018-01-29 08:46 | ER Document Report ---
ED General - General Chief Complaint: Epigastric Pain Stated Complaint: CHEST PAIN Time Seen by Provider: 01/29/18 06:16 Mode of Arrival: Ambulatory Information source: Patient, Parent Notes: 22-year-old female presents with complaints of epigastric right upper quadrant abdominal pain after eating. Patient denies any fevers or chills admits to mild nausea denies any vomiting. Patient notes she has had multiple similar episodes approximately 1-2 times a month. Patient notes that she states she has chest pain but actually comes from her stomach TRAVEL OUTSIDE OF THE [place] IN LAST 30 DAYS: No - HPI Onset: Just prior to arrival Onset/Duration: Intermittent Quality of pain: Cramping Severity: Mild Pain Level: 1 Associated symptoms: Nausea Exacerbated by: Food Relieved by: Denies Similar symptoms previously: Yes Recently seen / treated by doctor: Yes - Related Data Allergies/Adverse Reactions: No Known Allergies Allergy (Verified 12/29/17 23:46) Past Medical History - Social History Smoking Status: Never Smoker Cigarette use (# per day): No Chew tobacco use (# tins/day): No Smoking Education Provided: No Family History: Reviewed & Not Pertinent Patient has suicidal ideation: No Patient has homicidal ideation: No Neurological Medical History: Reports: Hx Migraine Renal/ Medical History: Denies: Hx Peritoneal Dialysis Past Surgical History: Reports: Hx Oral Surgery - wisdom, Hx Tonsillectomy - Immunizations Immunizations up to date: Yes Hx Diphtheria, Pertussis, Tetanus Vaccination: Yes Review of Systems - Review of Systems Notes: REVIEW OF SYSTEMS: CONSTITUTIONAL : Denies fever, chills, or sweats. Denies recent illness. EENT: Denies eye, ear, throat, or mouth pain or symptoms. Denies nasal or sinus congestion or discharge. Denies throat, tongue, or mouth swelling or difficulty swallowing. CARDIOVASCULAR: Denies chest pain. Denies palpitations or racing or irregular heart beat. Denies ankle edema. RESPIRATORY: Denies cough, cold, or chest congestion. Denies shortness of breath, difficulty breathing, or wheezing. GASTROINTESTINAL: Admits to epigastric abdominal pain GENITOURINARY: Denies difficulty urinating, painful urination, burning, frequency, blood in urine, or discharge. FEMALE GENITOURINARY: Denies vaginal bleeding, heavy or abnormal periods, irregular periods. Denies vaginal discharge or odor. MUSCULOSKELETAL: Denies back or neck pain or stiffness. Denies joint pain or swelling. SKIN: Denies rash, lesions or sores. HEMATOLOGIC : Denies easy bruising or bleeding. LYMPHATIC: Denies swollen, enlarged glands. NEUROLOGICAL: Denies confusion or altered mental status. Denies passing out or loss of consciousness. Denies dizziness or lightheadedness. Denies headache. Denies weakness or paralysis or loss of use of either side. Denies problems with gait or speech. Denies sensory loss, numbness, or tingling. Denies seizures. PSYCHIATRIC: Denies anxiety or stress. Denies depression, suicidal ideation, or homicidal ideation. ALL OTHER SYSTEMS REVIEWED AND NEGATIVE. PHYSICAL EXAMINATION: GENERAL: Well-appearing, well-nourished and in no acute distress. HEAD: Atraumatic, normocephalic. EYES: Pupils equal round and reactive to light, extraocular movements intact, conjunctiva are normal. ENT: Nares patent, oropharynx clear without exudates. Moist mucous membranes. NECK: Normal range of motion, supple without lymphadenopathy LUNGS: Breath sounds clear to auscultation bilaterally and equal. No wheezes rales or rhonchi. HEART: Regular rate and rhythm without murmurs ABDOMEN: Soft, tender in the epigastric region mild Female : deferred Musculoskeletal: Normal range of motion, no pitting or edema. No cyanosis. NEUROLOGICAL: Cranial nerves grossly intact. Normal speech, normal gait. Normal sensory, motor exams PSYCH: Normal mood, normal affect. SKIN: Warm, Dry, normal turgor, no rashes or lesions noted. Dictation was performed using [employer] voice recognition software Physical Exam - Vital signs Vitals: Temp Pulse Resp BP Pulse Ox 98.3 F 75 18 123/66 100 01/29/18 05:03 01/29/18 05:03 01/29/18 05:03 01/29/18 05:03 01/29/18 05:03 Course - Re-evaluation Re-evalutation: 01/29/18 14:59 Patient's presentation evaluation is most consistent with cholelithiasis, there is no acute signs of cholecystitis, she is afebrile no white count elevation is noted, she is pain-free at this time. I did give the patient follow-up with surgical list to determine if patient requires to have gallbladder removed After performing a Medical Screening Examination, I estimate there is LOW risk for ACUTE APPENDICITIS, BOWEL OBSTRUCTION, ACUTE CHOLECYSTITIS, PERFORATED DIVERTICULITIS, INCARCERATED HERNIA, PANCREATITIS, PELVIC INFLAMMATORY DISEASE, PERFORATED ULCER, ECTOPIC , or TUBO-OVARIAN ABSCESS, thus I consider the discharge disposition reasonable. Also, there is no evidence or peritonitis , sepsis, or toxicity. I have reevaluated this patient multiple times and no significant life threatening changes are noted. The patient and I have discussed the diagnosis and risks, and we agree with discharging home with close follow-up with the understanding that symptoms and presentations can change. We also discussed returning to the Emergency Department immediately if new or worsening symptoms occur. We have discussed the symptoms which are most concerning (e.g., bloody stool, fever, changing or worsening pain, vomiting) that necessitate immediate return. - Vital Signs Vital signs: Temp Pulse Resp BP Pulse Ox 98.2 F 63 17 116/54 L 100 01/29/18 09:03 01/29/18 09:03 01/29/18 09:03 01/29/18 09:03 01/29/18 09:03 - Laboratory Result Diagrams: 01/29/18 06:39 01/29/18 06:39 Laboratory results interpreted by me: 01/29/18 01/29/18 01/29/18 06:39 06:39 07:41 Hgb 10.4 L Hct 32.2 L MCV 76 L MCH 24.6 L RDW 15.7 H AST 75 H Ur Leukocyte Esterase TRACE H - Diagnostic Test Radiology reviewed: Image reviewed - Ultrasound abdomen limited consistent with cholelithiasis without cholecystitis, Reports reviewed Discharge - Discharge Clinical Impression: Cholelithiases Qualifiers: Cholelithiasis location: gallbladder Cholecystitis presence: without cholecystitis Biliary obstruction: without biliary obstruction Qualified Code(s) : K80.20 - Calculus of gallbladder without cholecystitis without obstruction Abdominal pain Qualifiers: Abdominal location: epigastric Qualified Code(s): R10.13 - Epigastric pain Condition: Stable Disposition: HOME, SELF-CARE Instructions: Gallbladder Disease ([facility]) Referrals: JENNIFER NEVAREZ MD [ACTIVE STAFF] - Follow up tomorrow
[2018-01-29 09:04] VITALS: BP 116/54
== END 2018-01-29 09:03 | disposition home or self-care (01) ==
LOC: ER 05:02
DX: K80.20 Calculus of gallbladder without cholecystitis without obstruction (principal); R10.13 Epigastric pain; R07.9 Chest pain, unspecified; R11.0 Nausea
CPT/HCPCS: 99284; 96374; 96375; 36415; 83690; 85025; 81025; 80053; 81001; 76705; J2765; J2270

== ENCOUNTER 2018-07-02 19:55 | Emergency (ER) | payer BC, MEDICAID ==
[2018-07-02] MEDS ORDERED: GUAIFENESIN 600 MG TABLET.SA PO ONE (21:23)
[2018-07-02] MEDS ORDERED: LORATADINE 10 MG TABLET PO ONE (21:23)
[2018-07-02] MEDS ORDERED: IBUPROFEN 600 MG TABLET PO ONE (21:23)
[2018-07-02] MEDS ORDERED: PSEUDOEPHEDRINE HCL 30 MG TABLET PO ONE (21:23)
[2018-07-02 21:24] VITALS: BP 124/72
--- NOTE | 2018-07-02 21:43 | RADIOLOGY REPORT (SQ) ---
XR CHEST 2 VIEWS HISTORY: cough and fever. COMPARISON: 09/20/2016 FINDINGS/IMPRESSION: Normal cardiomediastinal silhouette. Lungs are clear. No pleural effusion or pneumothorax is seen.
--- NOTE | 2018-07-02 21:50 | ER Document Report ---
HPI - HPI Patient complains to provider of: cough congestion fever Onset: Other - 2 days Onset/Duration: Gradual Quality of pain: Achy Severity: Moderate Pain Level: 4 Associated Symptoms: Body/muscle aches, Chills, Nonproductive cough, Fever, Headache, Rhinnorhea, Sinus pain/drainage, Sore throat Exacerbated by: Denies Relieved by: Denies Similar symptoms previously: Yes Recently seen / treated by doctor: No - ROS ROS below otherwise negative: Yes - CONSTITUTIONAL Constitutional: REPORTS: Fever, Chills - EENT EENT: REPORTS: Sore Throat, Nasal Drainage-Purulent, Congestion. DENIES: Ear Pain, Nasal Drainage-Clear, Eye problems - NEURO Neurology: REPORTS: Headache. DENIES: Weakness, Vision blurred, Dizzinesss / Vertigo - CARDIOVASCULAR Cardiovascular: DENIES: Chest pain - RESPIRATORY Respiratory: REPORTS: Coughing. DENIES: Trouble Breathing - GASTROINTESTINAL Gastrointestinal: DENIES: Abdominal Pain, Nausea, Patient vomiting, Diarrhea, Constipation, Black / Bloody Stools - URINARY Urinary: DENIES: Dysuria, Urgency, Frequency - REPRODUCTIVE Reproductive: DENIES: :, Postmenopausal, Abnormal bleeding / discharge - MUSCULOSKELETAL Musculoskeletal: REPORTS: Extremity pain - Body aches, Back Pain - Body aches. DENIES: Neck Pain, Swelling - DERM Skin Color: Normal Skin Problems: None Past Medical History - General Information source: Patient - Social History Smoking Status: Never Smoker Cigarette use (# per day): No Chew tobacco use (# tins/day): No Smoking Education Provided: No Frequency of alcohol use: None Drug Abuse: None Lives with: Family Family History: Reviewed & Not Pertinent Patient has suicidal ideation: No Patient has homicidal ideation: No - Past Medical History Cardiac Medical History: Reports: None Pulmonary Medical History: Reports: None EENT Medical History: Reports: None Neurological Medical History: Reports: Hx Migraine Endocrine Medical History: Reports: None Renal/ Medical History: Reports: None Malignancy Medical History: Reports: None GI Medical History: Reports: None Musculoskeletal Medical History: Reports None Skin Medical History: Reports None Psychiatric Medical History: Reports: None Infectious Medical History: Reports: None Past Surgical History: Reports: None, Hx Oral Surgery - wisdom, Hx Tonsillectomy - Immunizations Immunizations up to date: Yes Hx Diphtheria, Pertussis, Tetanus Vaccination: Yes - 2017 [facility] Provider Document - CONSTITUTIONAL Agree With Documented VS: Yes Exam Limitations: No Limitations General Appearance: WD/WN, No Apparent Distress - INFECTION CONTROL TRAVEL OUTSIDE OF THE [place] IN LAST 30 DAYS: No - HEENT HEENT: Atraumatic, Normocephalic, PERRLA. negative: Normal ENT Exam - Purulent nasal drainage with postnasal drip swollen erythematous nasal mucosa - NECK Neck: Normal Inspection, Supple, Thyroid Normal - RESPIRATORY Respiratory: Breath Sounds Normal, No Respiratory Distress, Chest Non-Tender - CARDIOVASCULAR Cardiovascular: Regular Rate, Regular Rhythm - GI/ABDOMEN Gastrointestinal: Abdomen Soft, Abdomen Non-Tender, No Organomegaly, Normal Bowel Sounds - BACK Back: Normal Inspection - MUSCULOSKELETAL/EXTREMETIES Musculoskeletal/Extremeties: MAEW, FROM, Non-Tender - NEURO Level of Consciousness: Awake, Alert, Appropriate Motor/Sensory: No Motor Deficit, No Sensory Deficit Deep Tendon Reflexes: 2+ - DERM Integumentary: Warm, Dry, No Rash Course - Vital Signs Vital signs: Temp Pulse Resp BP Pulse Ox 98.6 F 97 18 124/72 98 07/02/18 21:23 07/02/18 21:23 07/02/18 21:23 07/02/18 21:23 07/02/18 21:23 - Diagnostic Test Radiology reviewed: Image reviewed, Reports reviewed Discharge - Discharge Clinical Impression: Viral respiratory illness Condition: Stable Disposition: HOME, SELF-CARE Instructions: Family Physicians / Practices Additional Instructions: UPPER RESPIRATORY ILLNESS: You have a viral infection of the respiratory passages -- a "cold." This common infection causes nasal congestion, drainage, and often sore throat and cough. It is highly contagious. The disease usually lasts about 10 to 14 days. There is no "cure" for the viral infection -- it must run its course. If there is a complication, such as bacterial infection in the nose, sinuses, middle ear, or bronchial tubes, antibiotics may be required. The antibiotics won't affect the virus. Drink plenty of fluids. A humidifier may help. An expectorant medication or decongestant may make you more comfortable. Use acetaminophen or ibuprofen for fever or aches. See the doctor if fever persists over two days, if there is any significant worsening of your symptoms, or if you simply fail to improve as expected. Viral Syndrome The physician has diagnosed a viral infection. Viruses not only cause "colds," but can cause many different symptoms including generalized aching, fever, headache, cough, diarrhea, nausea, vomiting, and fatigue. The treatment, for the most part, is simply relief of symptoms. This means that antibiotics are usually not given. Rest, fluids, pain medications and, occasionally, medication for the specific symptoms that are most bothersome will be prescribed. Use good handwashing to avoid passing the virus to others. Shared toys should be cleaned with disinfectant. Clean the toilets, sinks, and counter surfaces in bathrooms. Launder clothing in hot water. Contact the physician if you develop any new or unusual symptoms such as severe headache, stiff neck, high fever, chest pain, productive cough, or shortness of breath. You should be rechecked if you don't see marked improvement within seven to 10 days. DECONGESTANT MEDICATION: A decongestant medicine has been suggested. Often this medicine is combined in the same tablet with an antihistamine or expectorant. This type of medicine is helpful in treating a bad cold or sinus condition, as well as in treatment of the nasal congestion of hay fever. It is not of much benefit for lung infections. Decongestant medicines are related to stimulants. They can cause an increase in blood pressure and heart rate. Persons with heart disease and high blood pressure should not take decongestants without discussing this with the physician. If you develop palpitations, chest pain, headache, or tremors, stop the medicine and consult your physician. COUGH-SUPPRESSANT & EXPECTORANT MEDICATION: You are to use a cough medication as needed for relief of symptoms. This medicine is a combination of an expectorant (to make the mucous thinner and more easily "coughed up") and a cough suppressant (to reduce the frequency of coughing). The cough-suppressant medicine is related to narcotics. You may experience mild nausea and sleepiness. Some patients who are very sensitive to narcotics may have stomach pain from this medicine. Taking the medicine with food reduces these side effects. Do not drive or work with machinery until you know how this medicine affects you. The expectorant should have no side effects. Iodine-containing expectorants (such as organidin) should not be taken by persons with active thyroid disease unless approved by your doctor. Call the doctor if you develop shortness of breath, hives, rash, itching, lightheadedness, or severe nausea and vomiting. USE OF ACETAMINOPHEN (Tylenol): Acetaminophen may be taken for pain relief or fever control. It's much safer than aspirin, offering a wider range of "safe" dosages. It is safe during . Some brand names are Tylenol, Panadol, Datril, Anacin 3, Tempra, and Liquiprin. Acetaminophen can be repeated every four hours. The following are maximum recommended dosages: >89 pounds or adults 650 mg to 900 mg Acetaminophen can be repeated every four hours. Maximum dose not to exceed 4000 mg a day. You were treated with Claritin 10 mg, Sudafed 30 mg, Mucinex 600 mg, and ibuprofen 600 mg, for your cough cold congestion. You can also use Flonase which is also [id number]. Use this according to the box instructions. Chloraseptic spray will also help with your sore throat. Salt and soda solutions were also help with your sore throat. Salt and soda solution 1 quart of water 1 tablespoon of salt 1 teaspoon of baking soda Mixed 3 ingredients together and boil for 1 minute Placed in a covered quart jar Use 1/2 ounce of cold solution to gargle 3 times a day FOLLOW-UP CARE: If you have been referred to a physician for follow-up care, call the physician s office for an appointment as you were instructed or within the next two days. If you experience worsening or a significant change in your symptoms, notify the physician immediately or return to the Emergency Department at any time for re-evaluation.
== END 2018-07-02 22:01 | disposition home or self-care (01) ==
LOC: ER 19:55
DX: B34.9 Viral infection, unspecified (principal); M79.10 Myalgia, unspecified site; R50.9 Fever, unspecified; R05 Cough; R51 Headache
CPT/HCPCS: 71046; 99283

== ENCOUNTER 2019-10-30 17:49 | Emergency (ER) | payer BC, MEDICAID ==
--- NOTE | 2019-10-30 19:08 | ER Document Report ---
ED Medical Screen (RME) - General Chief Complaint: Rib Pain Stated Complaint: RIB PAIN Time Seen by Provider: 10/30/19 19:02 Mode of Arrival: Ambulatory Information source: Patient Notes: 24-year-old female patient presents emergency department chief complaint of right upper quadrant abdominal pain that radiates around to her right flank. Patient reports associated nausea but denies any vomiting or diarrhea. Patient denies any association with food. She states the pain is been there for quite some time meaning several months however it has gotten worse over the last 1 to 2 days. She has not had any abdominal surgeries. She states she started her period today and there is no way to be . Patient is also complaining of a tender area to her left axilla. There is a palpable nodule deep in the left axilla, no erythema, does not appear to be consistent with an obvious abscess. I have greeted and performed a rapid initial assessment of this patient. A comprehensive ED assessment and evaluation of the patient, analysis of test results and completion of the medical decision making process will be conducted by additional ED providers. I have specifically instructed the patient or family members with the patient to immediately return to any nursing staff should anything change in the patient's condition or with their chief complaint. TRAVEL OUTSIDE OF THE [place] IN LAST 30 DAYS: No - Related Data Allergies/Adverse Reactions: No Known Allergies Allergy (Verified 10/30/19 19:01) Past Medical History - Social History Family history: Reviewed & Not Pertinent Neurological Medical History: Reports: Hx Migraine Renal/ Medical History: Denies: Hx Peritoneal Dialysis Past Surgical History: Reports: Hx Oral Surgery - wisdom, Hx Tonsillectomy - Immunizations Immunizations up to date: Yes Hx Diphtheria, Pertussis, Tetanus Vaccination: Yes - 2016 Physical Exam - Vital signs Vitals: Temp Pulse Resp BP Pulse Ox 99.1 F 73 20 143/82 H 100 10/30/19 18:02 10/30/19 18:02 10/30/19 18:02 10/30/19 18:02 10/30/19 18:02 Course - Vital Signs Vital signs: Temp Pulse Resp BP Pulse Ox 99.1 F 73 20 143/82 H 100 10/30/19 18:02 10/30/19 18:02 10/30/19 18:02 10/30/19 18:02 10/30/19 18:02
[2019-10-30] MEDS ORDERED: ONDANSETRON HCL 8 MG TABLET PO ONE (20:35)
[2019-10-30 20:39] LABS: APPEARANCE,URINE SLIGHTLY-CLOUDY; BILIRUBIN,URINE NEGATIVE (NEGATIVE); COLOR,URINE YELLOW; GLUCOSE, URINE NEGATIVE (NEGATIVE); KETONES,URINE NEGATIVE (NEGATIVE); LEUKOCYTE ESTERASE,URINE TRACE (NEGATIVE); NITRITE,URINE NEGATIVE (NEGATIVE); PROTEIN,URINE NEGATIVE (NEGATIVE); URINE SPECIFIC GRAVITY 1.021; UROBILINOGEN,URINE NEGATIVE mg/dL (<2.0)
--- NOTE | 2019-10-30 20:48 | RADIOLOGY REPORT (SQ) ---
EXAM DESCRIPTION: US ABDOMEN LIMITED COMPLETED DATE/TME: 10/30/2019 19:06 CLINICAL HISTORY: 24 years, Female, ruq PAIN COMPARISON: Prior study from 01/29/2018 TECHNIQUE: Axial 2-D grayscale images of the abdomen were acquired. Doppler was utilized. LIMITATIONS: Limited exam secondary to patient body habitus FINDINGS: The pancreas is largely obscured by overlying bowel gas artifact. Abdominal aortic measurements are as follows: Proximal: 2.0 cm Mid: 1.9 cm Distal: 1.5 cm The IVC was poorly visualized. The liver is diffusely echogenic. It measures 14.6 cm in length. No focal liver lesions. Antegrade flow is documented within the main portal vein. Gallbladder wall thickness measures 2 mm. Suspect echogenic material within the gallbladder lumen, suspicious for sludge and/or stones. Sonographic Cintron sign was positive. Common bile duct diameter measures 5 mm. No significant pericholecystic free fluid is identified. Right kidney measures 9.6 x 5.3 x 5.9 cm in size. No hydronephrosis. IMPRESSION: Suspected gallbladder sludge/cholelithiasis with positive sonographic Cintron sign. Overall, these findings are nonspecific given the absence of other signs of cholecystitis such as pericholecystic free fluid or significant gallbladder wall thickening. If there is continued concern, consider HIDA scan. Echogenic liver, suggestive of hepatic steatosis. copyright 2010 [employer]- All Rights Reserved
[2019-10-30 21:06] LABS: ABSOLUTE BASOPHILS # (AUTO) 0.1 10^3/uL (0.0-0.2); ABSOLUTE EOSINOPHILS # (AUTO) 0.2 10^3/uL (0.0-0.6); ABSOLUTE LYMPHOCYTES (AUTO) 2.3 10^3/uL (0.5-4.7); ABSOLUTE MONOCYTES (AUTO) 0.4 10^3/uL (0.1-1.4); ABSOLUTE NEUT (AUTO) 5.1 10^3/uL (1.7-8.2); BASOPHILS % (AUTO) 0.9 % (0-2); EOSINOPHILS % (AUTO) 2.4 % (0-6); HEMATOCRIT 32.8 % (36.0-47.0); HEMOGLOBIN 10.1 g/dL (12.0-15.5); LYMPHOCYTES % (AUTO) 28.2 % (13-45); MEAN CORPUSCULAR HEMOGLOBIN 19.4 pg (27.0-33.4); MEAN CORPUSCULAR HGB CONC 30.9 g/dL (32.0-36.0); MONOCYTES % (AUTO) 5.3 % (3-13); PLATELET COUNT 435 10^3/uL (150-450); RED BLOOD COUNT 5.21 10^6/uL (3.72-5.28); RED CELL DISTRIBUTION WIDTH 17.9 % (11.5-14.0); SEGMENTED NEUTROPHILS % (AUTO) 63.2 % (42-78); TOTAL CELLS COUNTED % (AUTO) 100 %; WHITE BLOOD COUNT 8.2 10^3/uL (4.0-10.5)
[2019-10-30 21:09] LABS: MEAN CORPUSCULAR VOLUME 63 fl (80-97)
[2019-10-30 21:16] LABS: ALBUMIN 4.5 g/dL (3.5-5.0); ALKALINE PHOSPHATASE 119 U/L (38-126); ANION GAP 11 (5-19); ASPARTATE AMINO TRANSFERASE 24 U/L (14-36); BILIRUBIN,DIRECT 0.3 mg/dL (0.0-0.4); BILIRUBIN,TOTAL 0.3 mg/dL (0.2-1.3); BLOOD UREA NITROGEN 11 mg/dL (7-20); CALCIUM 9.6 mg/dL (8.4-10.2); CARBON DIOXIDE 24 mmol/L (22-30); CHLORIDE 104 mmol/L (98-107); GLUCOSE 87 mg/dL (75-110); TOTAL PROTEIN 8.3 g/dL (6.3-8.2)
--- NOTE | 2019-10-30 21:22 | RADIOLOGY REPORT (SQ) ---
EXAM DESCRIPTION: Two views of the right ribs CLINICAL HISTORY: 24 years Female, right lower rib cage tenderness to palpation. COMPARISON: None. FINDINGS: No pneumothorax. The right lung is clear. The thoracic spine is normal. The right shoulder appears normal. Open oblique views of the right ribs demonstrate no displaced rib fractures. IMPRESSION: No acute process. No pneumothorax or displaced rib fractures.
--- NOTE | 2019-10-30 22:27 | ER Document Report ---
Entered by KALINA BOJORQUEZ SCRIBE 10/30/192033 Acting as scribe for:CELINE MARQUEZ MD ED General - General Chief Complaint: Rib Pain Stated Complaint: RIB PAIN Time Seen by Provider: 10/30/19 19:02 Mode of Arrival: Ambulatory Information source: Patient Notes: 24 year old female presents to the emergency department complaining of right side rib pain that has been occurring for about 2 years and began during her . Patient describes the pain as sharp, "shooting into her back" and constant. Patient reports no falls or possible trauma that started the pain initially. Patient reports nausea and denies cough. Patient's last normal menstrual period was 10/30/2019. Patient stated that she "came in for gallbladder pain" one year ago. TRAVEL OUTSIDE OF THE [place] IN LAST 30 DAYS: No - Related Data Allergies/Adverse Reactions: No Known Allergies Allergy (Verified 10/30/19 19:01) Past Medical History - General Information source: Patient - Social History Smoking Status: Never Smoker Cigarette use (# per day): No Chew tobacco use (# tins/day): No Frequency of alcohol use: None Drug Abuse: None Lives with: Family Family History: Reviewed & Not Pertinent, Other - Grandparents- Lung and liver cancer Patient has suicidal ideation: No Patient has homicidal ideation: No Neurological Medical History: Reports: Hx Migraine Past Surgical History: Reports: Hx Oral Surgery - wisdom, Hx Tonsillectomy - Immunizations Immunizations up to date: Yes Hx Diphtheria, Pertussis, Tetanus Vaccination: Yes - 2017 Review of Systems - Review of Systems Constitutional: See HPI. denies: Fever EENT: No symptoms reported Cardiovascular: No symptoms reported Respiratory: See HPI. denies: Cough Gastrointestinal: See HPI, Nausea. denies: Vomiting Genitourinary: No symptoms reported Female Genitourinary: See HPI. denies: Musculoskeletal: No symptoms reported Skin: No symptoms reported Hematologic/Lymphatic: No symptoms reported Neurological/Psychological: See HPI -: Yes All other systems reviewed and negative Physical Exam - Vital signs Vitals: Temp Pulse Resp BP Pulse Ox 99.1 F 73 20 143/82 H 100 10/30/19 18:02 10/30/19 18:02 10/30/19 18:02 10/30/19 18:02 10/30/19 18:02 - Notes Notes: Physical Exam: General: Alert, appears well. HEENT: Normocephalic. Atraumatic. PERRL. Extraocular movements intact. Oropharynx clear. Neck: Supple. Non-tender. Respiratory: No respiratory distress. Clear and equal breath sounds bilaterally. Lower right side rib machine steak tenderizer to palpation. Cardiovascular: Regular rate and rhythm. Abdominal: Normal Inspection. Non-tender. No distension. Normal Bowel Sounds. Back: No gross abnormalities. Extremities: Moves all four extremities. Upper extremities: Normal inspection. Normal ROM. Lower extremities: Normal inspection. No edema. Normal ROM. Neurological: Normal cognition. AAOx4. Normal speech. Psychological: Normal affect. Normal Mood. Skin: Warm. Dry. Normal color. Course - Re-evaluation Re-evalutation: 10/30/19 22:22 Patient resting comfortably. Patient states her nausea has resolved with Zofran. Reported to patient that her gallbladder ultrasound right upper quadrant showed no obstruction no stones. No cholecystitis. Patient was noted to have sludge in the gallbladder without stones. Chest x-ray including right ribs showed no acute fracture. Lungs fully inflated no acute process. - Vital Signs Vital signs: Temp Pulse Resp BP Pulse Ox 99.1 F 73 20 143/82 H 100 10/30/19 18:02 10/30/19 18:02 10/30/19 18:02 10/30/19 18:02 10/30/19 18:02 - Laboratory Result Diagrams: 10/30/19 20:44 10/30/19 20:44 Laboratory results interpreted by me: 10/30/19 10/30/19 10/30/19 20:19 20:44 20:44 Hgb 10.1 L Hct 32.8 L MCV 63 L MCH 19.4 L MCHC 30.9 L RDW 17.9 H Total Protein 8.3 H Urine Blood LARGE H Ur Leukocyte Esterase TRACE H Discharge - Discharge Clinical Impression: Right upper quadrant pain, Rib pain on right side Condition: Stable Disposition: HOME, SELF-CARE Instructions: Abdominal Pain ([facility]), Chest Wall Pain ([facility]) Additional Instructions: Gallbladder Disease Your evaluation shows evidence of gallbladder disease. The gallbladder is a pouch under the liver which stores bile. Stones, infection, or irritation of the gallbladder cause attacks of pain. Certain foods -- fats in particular -- may provoke attacks. The usual treatment for gallbladder disease is surgical removal of the gallbladder -- called a cholecystectomy. You will be referred to a physician qualified to advise you on the best treatment for your problem. Hospitalization is not necessary. Take clear liquids only until you are painfree. After that, you should stay on a low-fat diet, with frequent SMALL meals. Call the doctor or return at once if you develop severe pain, repeated vomiting, fever, or jaundice (a yellow color in the skin and whites of the eyes). Chest Wall Pain Your chest pain has been diagnosed as coming from the chest wall. This is often caused by straining the muscles or joints in the chest during physical activity, direct trauma, coughing, or vigorous vomiting. Persons with arthritis are especially prone to this type of pain, due to inflammation of the cartilage joints near the breast bone. Occasionally, no cause can be found. Rest from strenuous physical activity. This kind of chest pain is usually made worse by movement of the chest. Depending on the symptoms, we may prescribe medicine for pain, muscle relaxation, and antiinflammatory effects. If the pain is new, and seems to be due to muscle strain, cold packs can help. Otherwise, apply gentle warmth to the painful area for 15 minutes every hour or two. You should contact the doctor immediately if things change. Further evaluation is needed if you develop a fever or cough, if the nature of the pain changes, or if you become short of breath. Your ultrasound of gallbladder showed gallbladder sludge. There were no stones seen there is no fluid accumulating around the gallbladder or wall thickening of the gallbladder and there was no obstruction. If you continue to have pain in your right upper quadrant region you need to follow-up with your primary care doctor and have an was called a HIDA scan HIDA scan of your gallbladder. While I recommend you take either ibuprofen or Tylenol as needed for discomfort. I personally performed the services described in the documentation, reviewed and edited the documentation which was dictated to the scribe in my presence, and it accurately records my words and actions.
[2019-10-30 23:08] VITALS: BP 140/80
[2019-10-31 10:36] LABS: PATH REVIEW PATHOLOGIST REVIEWED
== END 2019-10-30 23:07 | disposition home or self-care (01) ==
LOC: ER 17:49
DX: R10.11 Right upper quadrant pain (principal); R07.81 Pleurodynia; R11.0 Nausea
CPT/HCPCS: 36415; 83690; 85025; 81025; 80053; 81001; 71100; 76705; S0119; 99284

== ENCOUNTER 2019-11-30 19:10 | Emergency (ER) | payer BC, MEDICAID ==
[2019-11-30] MEDS ORDERED: ONDANSETRON HCL INJ/PF 4 MG/2 ML SDV IV ONE (20:39)
[2019-11-30] MEDS ORDERED: NORMAL SALINE 1000 ML 1,000 ML IV ONE (20:39)
--- NOTE | 2019-11-30 20:39 | ER Document Report ---
ED Medical Screen (RME) - General Chief Complaint: Fever Stated Complaint: FEVER,NAUSEA,VOMITING,DIARRHEA Time Seen by Provider: 11/30/19 20:37 Mode of Arrival: Ambulatory Information source: Patient Notes: Otherwise healthy 24-year-old female presents emergency department chief complaint of nausea, vomiting, diarrhea and fever that began this morning. T- max 101.6. Patient denies any abdominal pain, cough, congestion. Her mother is present with similar symptoms. Abdomen soft, nontender no guarding no rebound. I have greeted and performed a rapid initial assessment of this patient. A comprehensive ED assessment and evaluation of the patient, analysis of test results and completion of the medical decision making process will be conducted by additional ED providers. I have specifically instructed the patient or family members with the patient to immediately return to any nursing staff should anything change in the patient's condition or with their chief complaint. TRAVEL OUTSIDE OF THE [place] IN LAST 30 DAYS: No - Related Data Allergies/Adverse Reactions: No Known Allergies Allergy (Verified 10/30/19 19:01) Past Medical History - Social History Family history: Reviewed & Not Pertinent Neurological Medical History: Reports: Hx Migraine Renal/ Medical History: Denies: Hx Peritoneal Dialysis Past Surgical History: Reports: Hx Oral Surgery - wisdom, Hx Tonsillectomy - Immunizations Immunizations up to date: Yes Hx Diphtheria, Pertussis, Tetanus Vaccination: Yes - 2017 Physical Exam - Vital signs Vitals: Temp Pulse Resp BP Pulse Ox 100.0 F 129 H 16 136/85 H 97 11/30/19 19:18 11/30/19 19:18 11/30/19 19:18 11/30/19 19:18 11/30/19 19:18 Course - Vital Signs Vital signs: Temp Pulse Resp BP Pulse Ox 100.0 F 129 H 16 136/85 H 97 11/30/19 19:18 11/30/19 19:18 11/30/19 19:18 11/30/19 19:18 11/30/19 19:18
[2019-11-30 21:28] LABS: ABSOLUTE LYMPHOCYTES (AUTO) 0.7 10^3/uL (0.5-4.7); ABSOLUTE MONOCYTES (AUTO) 0.2 10^3/uL (0.1-1.4); ABSOLUTE NEUT (AUTO) 9.8 10^3/uL (1.7-8.2); BASOPHILS % (AUTO) 0.2 % (0-2); EOSINOPHILS % (AUTO) 0.1 % (0-6); HEMOGLOBIN 10.8 g/dL (12.0-15.5); LYMPHOCYTES % (AUTO) 6.9 % (13-45); MEAN CORPUSCULAR HEMOGLOBIN 19.4 pg (27.0-33.4); MEAN CORPUSCULAR HGB CONC 30.8 g/dL (32.0-36.0); MEAN CORPUSCULAR VOLUME 63 fl (80-97); MONOCYTES % (AUTO) 2.1 % (3-13); PLATELET COUNT 515 10^3/uL (150-450); RED BLOOD COUNT 5.54 10^6/uL (3.72-5.28); RED CELL DISTRIBUTION WIDTH 18.6 % (11.5-14.0); SEGMENTED NEUTROPHILS % (AUTO) 90.7 % (42-78); TOTAL CELLS COUNTED % (AUTO) 100 %; WHITE BLOOD COUNT 10.8 10^3/uL (4.0-10.5)
[2019-11-30 21:32] LABS: APPEARANCE,URINE CLOUDY; BILIRUBIN,URINE NEGATIVE (NEGATIVE); COLOR,URINE YELLOW; GLUCOSE, URINE NEGATIVE (NEGATIVE); KETONES,URINE 20 mg/dL (NEGATIVE); LEUKOCYTE ESTERASE,URINE TRACE (NEGATIVE); NITRITE,URINE NEGATIVE (NEGATIVE); PROTEIN,URINE 30 mg/dL (NEGATIVE); URINE SPECIFIC GRAVITY 1.028; UROBILINOGEN,URINE NEGATIVE mg/dL (<2.0)
[2019-11-30 21:39] LABS: ALBUMIN 4.6 g/dL (3.5-5.0); ALKALINE PHOSPHATASE 108 U/L (38-126); ANION GAP 16 (5-19); ASPARTATE AMINO TRANSFERASE 22 U/L (14-36); BILIRUBIN,DIRECT 0.2 mg/dL (0.0-0.4); BILIRUBIN,TOTAL 0.6 mg/dL (0.2-1.3); BLOOD UREA NITROGEN 13 mg/dL (7-20); CALCIUM 9.7 mg/dL (8.4-10.2); CARBON DIOXIDE 21 mmol/L (22-30); CHLORIDE 102 mmol/L (98-107); GLUCOSE 123 mg/dL (75-110); POTASSIUM 4.4 mmol/L (3.6-5.0); TOTAL PROTEIN 8.5 g/dL (6.3-8.2)
[2019-11-30 21:50] LABS: ANISOCYTOSIS 1+; OVALOCYTES SLIGHT; PLATELET COMMENT INCREASED; POIKILOCYTOSIS SLIGHT
[2019-11-30 21:51] LABS: HYPOCHROMASIA SLIGHT
[2019-11-30] MEDS ORDERED: DICYCLOMINE HCL INJ 20 MG/2 ML AMPULE IM ONE (21:51)
[2019-11-30] MEDS ORDERED: ACETAMINOPHEN 325 MG TABLET PO ONE (22:13)
--- NOTE | 2019-11-30 22:25 | ER Document Report ---
ED General - General Chief Complaint: Fever Stated Complaint: FEVER,NAUSEA,VOMITING,DIARRHEA Time Seen by Provider: 11/30/19 20:37 Primary Care Provider: FELICITA STEVENS FNP-C [Primary Care Provider] - Follow up in 3-5 days Mode of Arrival: Ambulatory Notes: 24-year-old female presents with fever, nausea, vomiting, diarrhea and sore throat since upon awakening this morning. Patient states her temperature was 101.6 but states she did not take anything for it. Patient was 100 degrees here in the triage. Patient also states she is having generalized abdominal pain. Denies any blood in her emesis or stool. Mother also presents to ER with the same symptoms. Patient denies any chest pain. TRAVEL OUTSIDE OF THE [place] IN LAST 30 DAYS: No - Related Data Allergies/Adverse Reactions: No Known Allergies Allergy (Verified 11/30/19 20:39) Past Medical History - General Information source: Patient - Social History Smoking Status: Former Smoker Family History: Reviewed & Not Pertinent, Other - Grandparents- Lung and liver cancer Patient has suicidal ideation: No Patient has homicidal ideation: No Neurological Medical History: Reports: Hx Migraine Renal/ Medical History: Denies: Hx Peritoneal Dialysis Past Surgical History: Reports: Hx Oral Surgery - wisdom, Hx Tonsillectomy - Immunizations Immunizations up to date: Yes Hx Diphtheria, Pertussis, Tetanus Vaccination: Yes - 2017 Review of Systems - Review of Systems Notes: Constitutional: Positive for fever. HENT: Positive for sore throat. Eyes: Negative for visual changes. Cardiovascular: Negative for chest pain. Respiratory: Negative for shortness of breath. Gastrointestinal: Positive for abdominal pain, vomiting or diarrhea. Genitourinary: Negative for dysuria. Musculoskeletal: Negative for back pain. Skin: Negative for rash. Neurological: Negative for headaches, weakness or numbness. 10 point ROS negative except as marked above and in HPI. Physical Exam - Vital signs Vitals: Temp Pulse Resp BP Pulse Ox 100.0 F 129 H 16 136/85 H 97 11/30/19 19:18 11/30/19 19:18 11/30/19 19:18 11/30/19 19:18 11/30/19 19:18 - Notes Notes: GENERAL: Well-appearing, well-nourished and in no acute distress. HEAD: Atraumatic, normocephalic. EYES: Extraocular movements intact, sclera anicteric, conjunctiva are normal. ENT: Nares patent, oropharynx clear without exudates. Uvula midline without edema. No trismus. No muffled voice. No tonsillar hypertrophy. Moist mucous membranes. NECK: Normal range of motion, supple without lymphadenopathy or JVD. LUNGS: Breath sounds clear to auscultation bilaterally and equal. No wheezes rales or rhonchi. HEART: Regular rate and rhythm without murmurs, rubs or gallops. ABDOMEN: Soft, nontender. No guarding, no rebound. No masses appreciated. EXTREMITIES: Normal range of motion, no pitting or edema. No clubbing or cyanosis. NEUROLOGICAL: Cranial nerves II through XII grossly intact. Normal speech, normal gait. PSYCH: Normal mood, normal affect. SKIN: Warm, Dry, normal turgor, no rashes or lesions noted. Course - Re-evaluation Re-evalutation: 11/30/19 24-year-old female presents with nausea/vomiting/diarrhea, fever, sore throat. Abdomen soft nontender. Patient was initially tachycardic at 129 and had a temperature of 100 in the ER. Patient reports fever of 101.6 at home. PE is otherwise unremarkable. No obvious MACARONI MAKER. Reviewed RNs note and RN initially wrote that patient was lethargic however patient is not lethargic at all. Work- up was initiated. Patient is also receiving 1 L normal saline IV fluids, Zofran, Bentyl, and Tylenol. 11/30/19 22:26 Labs significant for WBC 10.8, hgb 10.8 which is at baseline, and elevated platelets of 515 most likely secondary to dehydration. UA also shows protein and ketones, most likely secondary to n/v/d. Another liter of fluids was ordered.CMP is significant glucose 123 and protein 8.5. Negative flu. Negative strep. 12/01/19 00:14 HR improved to 89. 12/01/19 02:19 PO challenge passed. Pt appears clinically improved. Pt states she feels much better. Pt given prescription for bentyl and zofran. Pt also given strict return precautions and close follow up with PCP. Pt voices understanding and agrees with plan of care. - Vital Signs Vital signs: Temp Pulse Resp BP Pulse Ox 99 F 89 16 115/67 97 11/30/19 23:16 03/12/20 23:16 11/30/19 23:16 11/30/19 23:16 11/30/19 23:16 - Laboratory Result Diagrams: 11/30/19 21:10 11/30/19 21:10 Laboratory results interpreted by me: 11/30/19 11/30/19 11/30/19 21:10 21:10 21:10 WBC 10.8 H RBC 5.54 H Hgb 10.8 L Hct 35.0 L MCV 63 L MCH 19.4 L MCHC 30.8 L RDW 18.6 H Plt Count 515 H Lymph % (Auto) 6.9 L [place] % (Auto) 2.1 L Absolute Neuts (auto) 9.8 H Seg Neutrophils % 90.7 H Carbon Dioxide 21 L Glucose 123 H Total Protein 8.5 H Urine Protein 30 H Urine Ketones 20 H Ur Leukocyte Esterase TRACE H Discharge - Discharge Clinical Impression: Nausea, vomiting, and diarrhea, Dehydration, Fever and chills Abdominal pain Qualifiers: Abdominal location: generalized Qualified Code(s): R10.84 - Generalized abdominal pain Condition: Stable Disposition: HOME, SELF-CARE Instructions: Abdominal Pain ([facility]), Antinausea Medication ([facility]), Intravenous (IV) Fluids ([facility]) Additional Instructions: Your lab work shows that you are dehydrated. Your flu test was negative and your strep test was also negative. Please take medications as prescribed. Return immediately to ER for any worsening symptoms, including vomiting not controlled by medication, increased abdominal pain, fever, chest pain, shortness of breath, or any other symptoms that are concerning to you. Please follow-up with your primary care doctor or 1 of the clinics listed in 3 to 5 days. Prescriptions: Ondansetron [Zofran Odt 4 mg Tablet] 4 mg PO Q4HP PRN #30 tab.rapdis PRN Reason: Dicyclomine HCl [Bentyl 20 mg Tablet] 20 mg PO QID #40 tablet Forms: Return to Work Referrals: FELICITA STEVENS FNP-C [Primary Care Provider] - Follow up in 3-5 days
[2019-11-30] MEDS: NORMAL SALINE 1000 ML 1,000 ML IV PRN (22:38)
[2019-11-30 22:49] LABS: A TYPE INFLUENZA AG NEGATIVE (NEGATIVE); B INFLUENZA AG NEGATIVE (NEGATIVE)
[2019-12-01] MEDS: NORMAL SALINE 1000 ML 1,000 ML IV PRN (00:30)
[2019-12-01] MEDS ORDERED: ONDANSETRON ODT 4 MG TAB (6 TAB/ER DISP) PO PRN (02:22)
[2019-12-01 02:48] VITALS: BP 110/65
== END 2019-12-01 02:48 | disposition home or self-care (01) ==
LOC: ER 19:10
DX: R11.2 Nausea with vomiting, unspecified (principal); R19.7 Diarrhea, unspecified; R50.9 Fever, unspecified; E86.0 Dehydration; J02.9 Acute pharyngitis, unspecified; R10.84 Generalized abdominal pain; Z87.891 Personal history of nicotine dependence
CPT/HCPCS: 99284; 96361; 96374; 96375; 36415; 87070; 87880; 83690; 85025; 81025; 80053; 81001; 87804; J0500; J2405; J7030 ×2

== ENCOUNTER 2020-09-21 15:57 | Emergency (ER) | payer BC, MEDICAID ==
[2020-09-21] MEDS ORDERED: ONDANSETRON HCL INJ/PF 4 MG/2 ML SDV IV ONE (16:34)
[2020-09-21] MEDS ORDERED: KETOROLAC TROMETHAMINE INJ/PF 30 MG/1 ML SDV IV ONE (16:34)
--- NOTE | 2020-09-21 16:36 | ER Document Report ---
ED Medical Screen (RME) - General Chief Complaint: Abdominal Pain Stated Complaint: ABDOMINAL PAIN Time Seen by Provider: 09/21/20 16:31 Primary Care Provider: FELICITA STEVENS FNP-C [Primary Care Provider] - Follow up as needed Mode of Arrival: Ambulatory Information source: Patient Notes: 25-year-old female patient presented to the emergency department with multiple symptoms today. Patient reports fever intermittently over the last 5 days with body aches and chills. Today she reports waking up with right lower quadrant abdominal pain that radiates around to her right flank area. She has associated nausea with diarrhea. She reports she has been at home, denies any known exposure to any Covid positive persons. Patient appears mildly uncomfortable, tenderness to the right lower quadrant however exam limited due to seated position in triage. I have greeted and performed a rapid initial assessment of this patient. A comprehensive ED assessment and evaluation of the patient, analysis of test results and completion of the medical decision making process will be conducted by additional ED providers. I have specifically instructed the patient or fa cathi members with the patient to immediately return to any nursing staff should anything change in the patient's condition or with their chief complaint. TRAVEL OUTSIDE OF THE [place] IN LAST 30 DAYS: No - Related Data Allergies/Adverse Reactions: No Known Allergies Allergy (Verified 11/30/19 20:39) Past Medical History - Social History Family history: Reviewed & Not Pertinent Neurological Medical History: Reports: Hx Migraine Renal/ Medical History: Denies: Hx Peritoneal Dialysis Past Surgical History: Reports: Hx Oral Surgery - wisdom, Hx Tonsillectomy - Immunizations Immunizations up to date: Yes Hx Diphtheria, Pertussis, Tetanus Vaccination: Yes - 2016 Physical Exam - Vital signs Vitals: Temp Pulse Resp BP Pulse Ox 98.7 F 82 18 141/80 H 97 09/21/20 16:20 09/21/20 16:20 09/21/20 16:20 09/21/20 16:20 09/21/20 16:20 Course - Vital Signs Vital signs: Temp Pulse Resp BP Pulse Ox 98.7 F 82 18 141/80 H 97 09/21/20 16:20 09/21/20 16:20 09/21/20 16:20 09/21/20 16:20 09/21/20 16:20 Doctor's Discharge - Discharge Referrals: HILDA,FELICITA B, [employer] [employer]-C [Primary Care Provider] - Follow up as needed
[2020-09-21 17:51] LABS: ABSOLUTE EOSINOPHILS # (AUTO) 0.1 10^3/uL (0.0-0.6); ABSOLUTE LYMPHOCYTES (AUTO) 1.3 10^3/uL (0.5-4.7); ABSOLUTE MONOCYTES (AUTO) 0.3 10^3/uL (0.1-1.4); ABSOLUTE NEUT (AUTO) 2.4 10^3/uL (1.7-8.2); BASOPHILS % (AUTO) 0.6 % (0-2); EOSINOPHILS % (AUTO) 3.3 % (0-6); HEMATOCRIT 32.8 % (36.0-47.0); HEMOGLOBIN 10.2 g/dL (12.0-15.5); LYMPHOCYTES % (AUTO) 31.6 % (13-45); MEAN CORPUSCULAR HEMOGLOBIN 19.5 pg (27.0-33.4); MEAN CORPUSCULAR HGB CONC 31.1 g/dL (32.0-36.0); MEAN CORPUSCULAR VOLUME 63 fl (80-97); MONOCYTES % (AUTO) 6.3 % (3-13); PLATELET COUNT 342 10^3/uL (150-450); RED BLOOD COUNT 5.24 10^6/uL (3.72-5.28); RED CELL DISTRIBUTION WIDTH 18.5 % (11.5-14.0); SEGMENTED NEUTROPHILS % (AUTO) 58.2 % (42-78); TOTAL CELLS COUNTED % (AUTO) 100 %; WHITE BLOOD COUNT 4.2 10^3/uL (4.0-10.5)
[2020-09-21 18:10] LABS: ALBUMIN 3.9 g/dL (3.5-5.0); ALKALINE PHOSPHATASE 98 U/L (38-126); ANION GAP 7 (5-19); ASPARTATE AMINO TRANSFERASE 36 U/L (14-36); BILIRUBIN,DIRECT 0.2 mg/dL (0.0-0.4); BILIRUBIN,TOTAL 0.2 mg/dL (0.2-1.3); BLOOD UREA NITROGEN 11 mg/dL (7-20); CALCIUM 9.7 mg/dL (8.4-10.2); CARBON DIOXIDE 27 mmol/L (22-30); CHLORIDE 104 mmol/L (98-107); GLUCOSE 97 mg/dL (75-110); POTASSIUM 4.4 mmol/L (3.6-5.0); TOTAL PROTEIN 7.1 g/dL (6.3-8.2)
[2020-09-21 18:20] LABS: ANISOCYTOSIS 2+; HYPOCHROMASIA 2+; OVALOCYTES 1+; PLATELET COMMENT ADEQUATE
[2020-09-21] MEDS ORDERED: ONDANSETRON HCL INJ/PF 4 MG/2 ML SDV ONE (20:04)
[2020-09-21] MEDS ORDERED: KETOROLAC TROMETHAMINE INJ/PF 30 MG/1 ML SDV ONE (20:04)
[2020-09-21] MEDS ORDERED: NORMAL SALINE 1000 ML 1,000 ML IV ONE (20:52)
--- NOTE | 2020-09-21 20:53 | ER Document Report ---
ED GI/ - General Chief Complaint: Abdominal Pain Stated Complaint: ABDOMINAL PAIN Time Seen by Provider: 09/21/20 16:31 Primary Care Provider: FELICITA STEVENS FNP-C [Primary Care Provider] - Follow up in 3-5 days Mode of Arrival: Ambulatory Information source: Patient Notes: 25-year-old female presented to ED for complaint of right lower quadrant tenderness. She states she did have a temperature of 101 last night. She states she did have a sore throat for 3 days. She states she has had 5 days of body aches and chills. She states she has right lower quadrant pain to the radiates to her right flank. She states she has had some nausea and diarrhea. She reports she has been at home denies any exposure to Covid persons. She is alert oriented respirations regular nonlabored speaking in full sentences. Last menstrual period was 1224. She states she does not smoke drink or use any drugs she lives with her parents and works at home. Constitutional: She has had some low-grade fever the highest fever has been 101 and that was last night. She has not had any fevers today. HENT: He has had some postnasal drip and a little bit of a sore throat yeste rday. Eyes: Negative for visual changes. Cardiovascular: Negative for chest pain. Respiratory: Negative for shortness of breath. Gastrointestinal: She did wake up with right pelvic pain radiating to her flank. She does not have any flank pain at this time. It is more right pelvic pain. Genitourinary: Negative for dysuria. Musculoskeletal: Negative for back pain. Skin: Negative for rash. Neurological: Negative for headaches, weakness or numbness. 10 point ROS negative except as marked above and in HPI. VITAL SIGNS: Within normal limits. GENERAL: No acute distress, non-toxic appearance. HEAD: Normal with no signs of head trauma. EYES: PERRLA, EOMI, conjunctiva normal, no discharge. EARS: Hearing grossly intact. NOSE: Normal. THROAT: Oropharynx is normal. NECK: Normal range of motion, no tenderness, supple, no lymphadenopathy, No adenopathy, no JVD. CHEST: Clear breath sounds bilaterally. No wheezes, rales, or rhonchi. CARDIAC: Regular rate and rhythm. S1 and S2, without murmurs, gallops, or rubs. VASCULAR: No Edema. Peripheral pulses normal and equal in all extremities. ABDOMEN: Normal and soft with no tenderness, no masses or pulsatile masses. GASTROINTESTINAL: Bowel sounds normal GENITOURINARY: Right pelvic numbness LYMPATHTIC: No lymphadenopathy noted. MUSCULOSKELETAL: Good range of motion of all major joints. Extremities without clubbing, cyanosis or edema. NEUROLOGICAL: Alert and oriented x 3. No focal sensory or strength deficits. Speech normal. Follows commands appropriately. PSYCHIATRIC: Normal Affect, judgement and mood. SKIN: Normal appearance with no rashes or lesions. TRAVEL OUTSIDE OF THE [place] IN LAST 30 DAYS: No - HPI Patient complains to provider of: Diarrhea, Pelvic pain, Other - nausea Onset: Other Timing/Duration: Intermittent Quality of pain: Sharp - Related Data Allergies/Adverse Reactions: No Known Allergies Allergy (Verified 11/30/19 20:39) Past Medical History - General Information source: Patient - Social History Smoking Status: Never Smoker Family History: Reviewed & Not Pertinent, Other - Grandparents- Lung and liver cancer Neurological Medical History: Reports: Hx Migraine Renal/ Medical History: Denies: Hx Peritoneal Dialysis Past Surgical History: Reports: Hx Oral Surgery - wisdom, Hx Tonsillectomy - Immunizations Immunizations up to date: Yes Hx Diphtheria, Pertussis, Tetanus Vaccination: Yes - 2016 Physical Exam - Vital signs Vitals: Temp Pulse Resp BP Pulse Ox 98.7 F 82 18 141/80 H 97 09/21/20 16:20 09/21/20 16:20 09/21/20 16:20 09/21/20 16:20 09/21/20 16:20 Course - Re-evaluation Re-evalutation: 09/22/20 00:[address] Bernard to come and examine the patient due to her right lower quadrant/pelvic pain. He recommended CT IV oral contrasted abdomen pelvis as t he ultrasound is negative. Will order and obtain CT IV and oral contrasted abdomen pelvis. 09/22/20 09:13 CT was negative for appendicitis. She was given a written report of her CT and ultrasound as well as the labs and instructed to please follow-up with her primary care and/or REGISTERED NURSE NURSERY specialist. Patient verbalized understanding agreement treatment plan patient was discharged home. - Vital Signs Vital signs: Temp Pulse Resp BP Pulse Ox 97.8 F 68 16 127/70 H 100 09/22/20 04:37 09/22/20 04:37 09/22/20 04:37 09/22/20 04:37 09/22/20 04:37 - Laboratory Results Result Diagrams: 09/21/20 17:28 09/21/20 17:28 Laboratory Results Interpreted: 09/21/20 09/21/20 09/21/20 17:28 17:28 17:28 Hgb 10.2 L Hct 32.8 L MCV 63 L MCH 19.5 L MCHC 31.1 L RDW 18.5 H ALT 42 H Ur Leukocyte Esterase MODERATE H Urine Ascorbic Acid 40 H Critical Laboratory Results Reviewed: No Critical Results - Radiology Results Critical Radiology Results Reviewed: No Critical Results Discharge - Discharge Clinical Impression: Abdominal pain Qualifiers: Abdominal location: right lower quadrant Qualified Code(s): R10.31 - Right lower quadrant pain Condition: Stable Disposition: HOME, SELF-CARE Additional Instructions: ABDOMINAL PAIN: There are many causes of abdominal pain. Pain can mean a serious problem requiring surgery (such as appendicitis). It can also be an innocent problem that goes away on its own (such as a viral infection). Often, time must pass to determine the cause of pain. The physician does not feel that hospitalization is necessary, at present. Things may change within the next 24 hours. Call the doctor or come back for re- examination if any problems occur, such as: (1) Pain that becomes more severe, steady, or becomes concentrated in one specific area. Also, pain that is more severe with movement or coughing. (2) Vomiting that persists or becomes more frequent. (3) Blood in the vomitus, urine, or bowel movements. Blood in the stool may have a tarry or black appearance. (4) Shaking chills or fever greater than 100 degrees F. (5) The abdomen becomes more distended or swollen. (6) Bowel movements cease. (7) Failure to improve as expected. NORMAL EXAM AND WORKUP: At this time, your examination and workup show no significant abnormality. No significant abnormal physical findings are noted. All laboratory, EKG, and imaging (x-ray, CT scans, ultrasound) studies that were ordered show no significant abnormality. Although your examination and all studies that were ordered showed no significant abnormal finding, there are no examinations and no studies that are 100% accurate. There is always the possibility that some abnormality could exist and not be detected with physical examination or within the limits and capabilities of laboratory and other studies. You should return or follow up as you were instructed on your visit today for further evaluation if your symptoms do not resolve. TORADOL INJECTION: You have been given an injection of ketorolac tromethamine (Toradol). This is an excellent, safe drug for pain control. It also has potent antiinfla mmatory action. You should have significant pain relief within about one hour. Toradol is not addicting and is non-sedating. It does not interfere with driving or work. Call or return if you develop itching, hives, shortness of breath, or rash. ANTINAUSEA MEDICATION: You have been given a medication to suppress nausea and vomiting. This type of medication can be given as a shot, pill, or suppository. It will usually last for many hours. Pills and shots usually last six to eight hours, suppositories last about 12 hours. For the typical illness, only one or two doses of the medication may be necessary. Mild lightheadedness may occur. This type of medicine can cause d rowsiness. Do not drive or operate dangerous machinery while under its influence. Do not mix with alcohol. See your doctor at once if you have muscle spasms or tightness, or uncontrollable motions (particularly of the neck, mouth, or jaw). Persistent vomiting or severe lightheadedness should also be evaluated by the physician. Intravenous (IV) Fluids As part of your care today, you received intravenous (IV) fluids. IV fluids are administered to patients who are dehydrated or to those who have certain chemical (electrolyte) abnormalities that need correcting. ORAL NARCOTIC MEDICATION: You have been given a call for pain control. This medication is a narcotic. It's best taken with food, as nausea can result if taken on an empty stomach. Don't operate machinery or drive within six hours of taking this medication. Do not combine this medicine with alcohol, or with any medication which can cause sedation (such as cold tablets or sleeping pills) unless you get permission from the physician. Narcotics tend to cause constipation. If possible, drink plenty of fluids and eat a diet high in fiber and fruits. Please be aware that prescription narcotics also have the potential for abuse. People become addicted to these medications because of the general sense of wellbeing that they induce. This feeling along with a significant reduction in tension, anxiety, and aggression provides a stimulating seductive quality to these drugs. Once your pain is under control, we encourage you to discard your unused narcotics. FOLLOW-UP CARE: If you have been referred to a physician for follow-up care, call the physicians office for an appointment as you were instructed or within the next two days. If you experience worsening or a significant change in your symptoms, notify the physician immediately or return to the Emergency Department at any time for re-evaluation. Prescriptions: Ibuprofen [Motrin 800 mg Tablet] 800 mg PO Q12H PRN #14 tab PRN Reason: For Pain Ondansetron [Zofran Odt 4 mg Tablet] 1 tab PO Q6H #15 tab.rapdis Forms: Elevated Blood Pressure Referrals: FELICITA STEVENS, REAL ESTATE ANALYST-C [Primary Care Provider] - Follow up in 3-5 days
--- NOTE | 2020-09-21 23:26 | RADIOLOGY REPORT (SQ) ---
EXAM DESCRIPTION: US PELVIS TRANSVAGINAL COMPLETED DATE/TME: 09/21/2020 22:53 CLINICAL HISTORY: 25 years Female, right pelvic pain Comparison: None. Technique: Transabdominal and transvaginal. LIMITATIONS: Ovarian vascularity not imaged or documented. FINDINGS: 1.8 cm right ovary and 3.0 cm left ovary. 8-cm uterus, 0.13-cm endometrial stripe thickness, nabothian cysts appear normal in size, shape, echotexture, and vascularity. Trace pelvic cul-de-sac fluid. IMPRESSION: 1. Endometrial hypoplasia. 2. Limitation.
[2020-09-21] MEDS ORDERED: HYDROCODONE/ACETAMINOPHEN 5-325 MG TABLET PO ONE (23:55)
[2020-09-22 00:06] LABS: APPEARANCE,URINE SLIGHTLY-CLOUDY; BILIRUBIN,URINE NEGATIVE (NEGATIVE); CALCIUM OXALATE CRYSTALS,URINE TOO NUMEROUS TO CNT /HPF; COLOR,URINE YELLOW; GLUCOSE, URINE NEGATIVE (NEGATIVE); KETONES,URINE NEGATIVE (NEGATIVE); LEUKOCYTE ESTERASE,URINE MODERATE (NEGATIVE); NITRITE,URINE NEGATIVE (NEGATIVE); PROTEIN,URINE NEGATIVE (NEGATIVE); UROBILINOGEN,URINE NEGATIVE mg/dL (<2.0)
--- NOTE | 2020-09-22 03:18 | RADIOLOGY REPORT (SQ) ---
CT abdomen and pelvis with contrast on 09/22/2020 at 2:31 AM CLINICAL INDICATION: Right lower quadrant pain TECHNIQUE: Multiple axial images are obtained throughout the abdomen and pelvis following the administration of IV and oral contrast. This exam was performed according to our departmental dose-optimization program, which includes automated exposure control, adjustment of the mA and/or kV according to patient size and/or use of iterative reconstruction technique. Total DLP is 2416.02 mGy*cm. COMPARISON: 10/07/2015 FINDINGS: Abdomen: The lung bases are clear. There is mild fatty infiltration of the liver. Borderline splenomegaly is noted with the spleen measuring 14.1 cm and greatest [id number] length. The solid abdominal organs are otherwise unremarkable. There is no abdominal adenopathy. There is no free fluid or free air within the abdomen. The abdominal portion of the GI tract is unremarkable. There is a small umbilical hernia containing only fat. Pelvis: Cecum is low-lying in the pelvis. Normal appendix is best visualized on coronal images 73 through 80. Pelvic organs appear unremarkable by CT. There is no free fluid in the pelvis. There is no pelvic adenopathy. Pelvic portion of the GI tract is unremarkable. No acute bony abnormality is noted. IMPRESSION: 1. Borderline splenomegaly. 2. Otherwise no acute abnormality.
[2020-09-22] MEDS ORDERED: IBUPROFEN 800 MG TABLET PO ONE (04:11)
[2020-09-22 04:38] VITALS: BP 127/70
== END 2020-09-22 04:40 | disposition home or self-care (01) ==
LOC: ER 15:57
DX: R10.31 Right lower quadrant pain (principal); N85.8 Other specified noninflammatory disorders of uterus; R11.0 Nausea; R19.7 Diarrhea, unspecified; R10.2 Pelvic and perineal pain
CPT/HCPCS: 99285; 96361; 96374; 96375; 36415; 87086; 83690; 85025; 81025; 80053; 81001; 76830; 74177; J1885; J2405; J7030